=== PATIENT | male | born 1935 | race Caucasian/White ===

== ENCOUNTER 2018-07-29 01:54 | Inpatient (IN) ==
[2018-07-29] MEDS ORDERED: Bisacodyl 10 MG Supp RECTAL PRN (05:50)
[2018-07-29] MEDS ORDERED: Acetaminophen 325 MG Tablet PO PRN (05:50)
[2018-07-29] MEDS ORDERED: Dextrose 50% in Water 50 ML Vial IV.PUSH PRN (09:37)
[2018-07-29] MEDS: Senna/Docusate Sodium 8.6/50 MG Tablet PO SCH ×2 (10:24→20:32)
[2018-07-29] MEDS: Insulin NovoLOG Aspart Correctional Sugar Inj SQ SCH ×3 (11:54→20:31)
--- NOTE | 2018-07-29 18:05 | P.PNIM ---
Subjective Interval history: Mr. Gabriel is an 82-year-old male. He came in secondary to shortness of breath. He is also been having lower extremity swelling. Pulmonary edema is present on exam. He has a history of pacemaker which by history it seems to have been placed secondary to arrhythmia, possibly bigeminy. He denies any chest pain. Lasix will be provided an echocardiogram obtained as patient cannot clarify whether or not he has a history of congestive heart failure. No other complaints at this time. Lab work does suggest CHF with the physical exam plus BNP elevation. Physical Exam Vital signs: Vital Signs 07/29/18 08:35 07/29/18 08:44 07/29/18 13:42 Temperature 96.3 F L 96.7 F L Pulse Rate 68 61 64 Respiratory Rate 18 18 Blood Pressure 136/65 135/69 Pulse Oximetry 93 L 96 07/29/18 16:00 Temperature 97.7 F Pulse Rate 82 Respiratory Rate 22 Blood Pressure 114/54 L Pulse Oximetry 96 Intake & Output 07/28/18 07/29/18 07/29/18 18:59 06:59 18:59 Weight 111.13 kg Other: Date of Last Bowel Movement 07/29/18 Weight On Admission 111.13 kg Narrative: GENERAL: NAD, A&Ox3 HEAD: Normocephalic. NECK: Supple, trachea midline. No lymphadenopathy. EYES: No scleral icterus. No injection or drainage. CARDIOVASCULAR: Regular rate and rhythm without murmurs, gallops, or rubs. RESPIRATORY: Breath sounds equal bilaterally. No accessory muscle use. Crackles at bases bilaterally. GASTROINTESTINAL: Abdomen soft, non-tender, nondistended. MUSCULOSKELETAL: No cyanosis, bilateral lower extremity edema. SKIN: Warm and dry. NEURO: No focal neurological deficits. Assessment and Plan Plan 82-year-old male admitted secondary to shortness of breath Possible CHF exacerbation Obtain echocardiogram Lasix Follow for fluid balance IV diuresis Monitor renal function Oxygen as needed Follow clinically for improvement Follow on telemetry Progress Note: Quality VTE Deep Vein Thrombosis/Pulmonary Embolism Present on Admission: No
--- NOTE | 2018-07-29 18:12 | P.HPIM ---
History of Present Illness Primary Care Physician: UNKNOWN History of Present Illness: Mr. Gabriel is an 82-year-old male. He came in secondary to shortness of breath. He is also been having lower extremity swelling. Pulmonary edema is present on exam. He has a history of pacemaker which by history it seems to have been placed secondary to arrhythmia, possibly bigeminy. He denies any chest pain. Jose will be provided an echocardiogram obtained as patient cannot clarify whether or not he has a history of congestive heart failure. No other complaints at this time. Lab work does suggest CHF with the physical exam plus BNP elevation. Review of Systems Constitutional: No fevers, no chills no night sweats, no fatigue, no weakness Eyes: No eye pain, no blurry vision, no loss of vision ENT: No sore throat, no ear pain, no rhinorrhea Cardiovascular: No chest pain, no tachycardia, no palpitations, no syncope Respiratory: No wheezing, no cough, shortness of breath Gastrointestinal: No abdominal pain, no black tarry stools, no bright red blood per rectum, no vomiting, no diarrhea Musculoskeletal: No joint pain, no muscle cramps, no stiffness Integumentary: No rash, no ulcers, no drainage Neurologic: No sensory loss, no loss of motor function, no dizziness Psychiatric: No behavioral changes, no hallucinations, no suicidal ideations [facility] Medical History Medical History CHF (congestive heart failure) (Acute) Diabetes (Acute) Hx of cardiac pacemaker (Acute) Family History Family History Other Osteoarthritis Social History Social History Substance History: No History of Abuse Second Hand Smoke Exposure: No Smoking Status: Never smoker How Often Do You Have a Drink Containing Alcohol: Never Recent Travel in [facility] within the Last 8 Weeks: No Recent Out of Country Travel within the Last 8 Weeks: No Medications and Allergies Allergies Allergy/AdvReac Type Severity Reaction Status Date / Time No Known Allergies Allergy Verified 07/29/18 01:56 Home Medications Medication Instructions Recorded Confirmed Type No Known Home Medications 07/29/18 07/29/18 History Active Medications: Active Medications Acetaminophen (Tylenol) 650 mg PO Q4H PRN PRN Reason: Temp > 100.4 Al Hydroxide/Mg Hydroxide (Milk Of Magnesia Liq) 30 ml PO Q12H PRN PRN Reason: Mild Constipation Bisacodyl (Dulcolax Supp) 10 mg RECTAL DAILY PRN PRN Reason: SEVERE CONSITIPATION Dextrose (D50w Vial) 50 ml IV.PUSH UNSCH PRN PRN Reason: PER HYPOGLYCEMIA PROTOCOL Furosemide (Lasix Inj) 40 mg IV.PUSH BID@0800,1400 [facility] Glucagon (Glucagon Inj) 1 mg OTHER PRN PRN PRN Reason: for Hypoglycemia Protocol Insulin Aspart (Novolog Insulin Correctional Sugar Inj) 0 unit SQ ACHS [facility]; Protocol Last Admin: 07/29/18 16:57 Dose: 10 unit Lactulose (Lactulose Liq) 30 ml PO DAILY PRN PRN Reason: SEVERE CONSITIPATION Ondansetron HCl (Zofran Inj) 4 mg IV.PUSH Q6H PRN PRN Reason: NAUSEA OR VOMITING Senna/Docusate Sodium (Isamar-Colace) 1 tab PO BID [facility] Last Admin: 07/29/18 10:24 Dose: Not Given Sennosides (Senokot) 17.2 mg PO Q12H PRN PRN Reason: Moderate Constipation Sodium Chloride (Ns Flush) 2 ml IV.FLUSH BID [facility] Last Admin: 07/29/18 10:24 Dose: 2 ml Physical Exam Vital signs: Vital Signs 07/29/18 08:35 07/29/18 08:44 07/29/18 13:42 Temperature 96.3 F L 96.7 F L Pulse Rate 68 61 64 Respiratory Rate 18 18 Blood Pressure 136/65 135/69 Pulse Oximetry 93 L 96 07/29/18 16:00 Temperature 97.7 F Pulse Rate 82 Respiratory Rate 22 Blood Pressure 114/54 L Pulse Oximetry 96 Intake & Output 07/28/18 07/29/18 07/29/18 18:59 06:59 18:59 Weight 111.13 kg Other: Date of Last Bowel Movement 07/29/18 Weight On Admission 111.13 kg Narrative: GENERAL: NAD, A&Ox3 HEAD: Normocephalic. NECK: Supple, trachea midline. No lymphadenopathy. EYES: No scleral icterus. No injection or drainage. CARDIOVASCULAR: Regular rate and rhythm without murmurs, gallops, or rubs. RESPIRATORY: Breath sounds equal bilaterally. No accessory muscle use. Crackles at lungs bilaterally GASTROINTESTINAL: Abdomen soft, non-tender, nondistended. MUSCULOSKELETAL: No cyanosis, bilateral lower extremity edema SKIN: Warm and dry. NEURO: No focal neurological deficits. Caprini VTE Risk Assessment Caprini VTE Risk Assessment: No/Low Risk (score <= 1) Caprini Risk Assessment Model: Point Value = 1 Point Value = 2 Point Value = 3 Point Value = 5 Age 41-60 Minor surgery BMI > 25 kg/m2 Swollen legs Varicose veins or History of unexplained or recurrent spontaneous Oral contraceptives or hormone replacement Sepsis (< 1 month) Serious lung disease, including pneumonia (< 1 month) Abnormal pulmonary function Acute myocardial infarction Congestive heart failure (< 1 month) History of inflammatory bowel disease Medical patient at bed rest Age 61-74 Arthroscopic surgery Major open surgery (> 45 min) Laparoscopic surgery (> 45 min) Malignancy Confined to bed (> 72 hours) Immobilizing plaster cast Central venous access Age >= 75 History of VTE Family history of VTE Factor V Leiden Prothrombin [id number] Lupus anticoagulant Anticardiolipin antibodies Elevated serum homocysteine Heparin-induced thrombocytopenia Other congenital or acquired thrombophilia Stroke (< 1 month) Elective arthroplasty Hip, pelvis, or leg fracture Acute spinal cord injury (< 1 month) Prophylaxis Regimen: Total Risk Factor Score Risk Level Prophylaxis Regimen 0-1 Low Early ambulation 2 Moderate Order ONE of the following: *Sequential Compression Device (SCD) *Heparin 5000 units SQ BID 3-4 Higher Order ONE of the following medications: *Heparin 5000 units SQ TID *Enoxaparin/Lovenox 40 mg SQ daily (WT < 150 kg, CrCl > 30 mL/min) *Enoxaparin/Lovenox 30 mg SQ daily (WT < 150 kg, CrCl > 10-29 mL/min) *Enoxaparin/Lovenox 30 mg SQ BID (WT < 150 kg, CrCl > 30 mL/min) AND/OR *Sequential Compression Device (SCD) 5 or more Highest Order ONE of the following medications: *Heparin 5000 units SQ TID (Preferred with Epidurals) *Enoxaparin/Lovenox 40 mg SQ daily (WT < 150 kg, CrCl > 30 mL/min) *Enoxaparin/Lovenox 30 mg SQ daily (WT < 150 kg, CrCl > 10-29 mL/min) *Enoxaparin/Lovenox 30 mg SQ BID (WT < 150 kg, CrCl > 30 mL/min) AND *Sequential Compression Device (SCD) Assessment and Plan Plan 82-year-old male admitted secondary to shortness of breath, possible undiagnosed CHF with exacerbation Possible CHF exacerbation Obtain echocardiogram IV diuresis Monitor renal function Oxygen as needed Follow clinically for improvement Follow on telemetry No known cardiac history DVT prophylaxis SCDs H&P: Quality VTE Deep Vein Thrombosis/Pulmonary Embolism Present on Admission: No
[2018-07-29] MEDS ORDERED: guaiFENesin/Dextromethorphan 200 MG/20 MG 10 ML UDC PO PRN (21:00)
[2018-07-30 06:48] LABS: Chloride 98 meq/L (98-107); Potassium 3.3 meq/L (3.5-5.1); Sodium 136 meq/L (136-145)
[2018-07-30 06:50] LABS: Baso % (Auto) 0.2 % (0.0-2.0); Eos # (Auto) 0.2 th/mm3 (0.0-0.4); Eos % (Auto) 1.5 % (0.0-4.0); Hematocrit 46.9 % (39.0-51.0); Hemoglobin 15.4 gm/dL (13.0-17.0); Lymph # (Auto) 1.7 th/mm3 (1.0-4.8); Lymph % (Auto) 15.1 % (9.0-44.0); Mean Corpuscular HGB Conc 32.8 % (32.0-36.0); Mean Corpuscular Hemoglobin 29.7 pg (27.0-34.0); Mean Corpuscular Volume 90.5 fL (80.0-100.0); Mean Platelet Volume 10.2 fL (7.0-11.0); Mono # (Auto) 0.4 th/mm3 (0.0-0.9); Neut # (Auto) 8.8 th/mm3 (1.8-7.7); Neut % (Auto) 79.2 % (16.0-70.0); Platelet Count 243 th/mm3 (150-450); Red Blood Count 5.18 mil/mm3 (4.50-5.90); Red Cell Distribution Width 13.9 % (11.6-17.2); White Blood Count 11.1 th/mm3 (4.0-11.0)
[2018-07-30 06:51] LABS: Calcium 8.7 mg/dL (8.5-10.1)
[2018-07-30 06:52] LABS: Albumin 2.7 g/dL (3.4-5.0); Anion Gap 7 meq/L (5-15); Blood Urea Nitrogen 43 mg/dL (7-18); Carbon Dioxide 30.6 meq/L (21.0-32.0); Glucose,Random 135 mg/dL (74-106)
[2018-07-30 06:55] LABS: Alanine Aminotransferase 71 U/L (12-78); Aspartate Aminotransferase 75 U/L (15-37); Glomerular Filtration Rate 58 mL/min (>89)
[2018-07-30 06:57] LABS: Alkaline Phosphatase 118 U/L (45-117); Total Protein 7.2 g/dL (6.4-8.2)
[2018-07-30] MEDS: Senna/Docusate Sodium 8.6/50 MG Tablet PO SCH ×2 (08:44→21:49)
[2018-07-30] MEDS: Insulin NovoLOG Aspart Correctional Sugar Inj SQ SCH ×4 (08:45→21:48)
--- NOTE | 2018-07-30 12:56 | P.PNIM ---
Subjective Interval history: Her status has improved. Patient remains weak. Renal function also has improved. Echocardiogram just performed now and report pending. Physical Exam Vital signs: Vital Signs 07/29/18 13:42 07/29/18 16:00 07/29/18 16:15 Temperature 96.7 F L 97.7 F Pulse Rate 64 82 60 Respiratory Rate 18 22 Blood Pressure 135/69 114/54 L Pulse Oximetry 96 96 07/29/18 20:00 07/30/18 00:00 07/30/18 04:00 Temperature 96.8 F L 97.7 F 97.3 F L Pulse Rate 63 79 70 Respiratory Rate 20 20 20 Blood Pressure 119/62 145/88 H 118/78 Pulse Oximetry 94 L 98 94 L 07/30/18 08:00 07/30/18 12:00 Temperature 100.0 F H 100.8 F H Pulse Rate 97 H 93 H Respiratory Rate 20 20 Blood Pressure 133/61 136/65 Pulse Oximetry 95 95 Intake & Output 07/29/18 07/30/18 07/30/18 18:59 06:59 18:59 Output Total 175 / 175 Balance -175 / -175 Weight 111.13 kg 112.3 kg Output: Urine 175 / 175 Other: # Voids 4 Date of Last Bowel Movement 07/29/18 07/30/18 Weight On Admission 111.13 kg Narrative: GENERAL: NAD, A&Ox3 HEAD: Normocephalic. NECK: Supple, trachea midline. No lymphadenopathy. EYES: No scleral icterus. No injection or drainage. CARDIOVASCULAR: Regular rate and rhythm without murmurs, gallops, or rubs. RESPIRATORY: Breath sounds equal bilaterally. No accessory muscle use. Crackles at lungs bilaterally GASTROINTESTINAL: Abdomen soft, non-tender, nondistended. MUSCULOSKELETAL: No cyanosis, bilateral lower extremity edema SKIN: Warm and dry. NEURO: No focal neurological deficits. Results Labs CBC & Chem 7: 07/30/18 06:15 07/30/18 06:15 Assessment and Plan Plan 82-year-old male admitted secondary to shortness of breath, possible undiagnosed CHF with exacerbation Follow for echocardiogram report. Clinically patient has improvements in his renal function and breathing. Weakness remains in physical therapy ongoing. Possible CHF exacerbation Obtain echocardiogram IV diuresis Monitor renal function Oxygen as needed Follow clinically for improvement Follow on telemetry No known cardiac history DVT prophylaxis SCDs Progress Note: Quality VTE Deep Vein Thrombosis/Pulmonary Embolism Present on Admission: No
--- NOTE | 2018-07-30 18:36 | ECHRPT ---
Indication: SHORTNESS OF BREATH CONCLUSIONS Technically difficult study. Normal left ventricular size. The left ventricular systolic function is moderately to severely reduced with an estimated ejection fraction in the range of 30-35%. The estimated pulmonary arterial pressure is 14 mmHg. BP: / HR: Rhythm: Sinus MEASUREMENTS (Male / Female) Normal Values Technical Quality:Technically difficult study 2D ECHO LV Diastolic Diameter PLAX 5.1 cm 4.2 - 5.9 / 3.9 - 5.3 cm LV Systolic Diameter PLAX 4.4 cm IVS Diastolic Thickness 1.3 cm 0.6 - 1.0 / 0.6 - 0.9 cm LVPW Diastolic Thickness 1.4 cm 0.6 - 1.0 / 0.6 - 0.9 cm LV Relative Wall Thickness 0.5 LA Systolic Diameter LX 3.6 cm 3.0 - 4.0 / 2.7 - 3.8 cm DOPPLER AV Peak Velocity 157.0 cm/s AV Peak Gradient 9.9 mmHg AV Mean Gradient 5.0 mmHg AV Velocity Time Integral 24.8 cm LVOT Peak Velocity 85.0 cm/s LVOT Peak Gradient 2.9 mmHg LVOT Velocity Time Integral 15.2 cm Mitral E Point Velocity 110.0 cm/s Mitral A Point Velocity 66.6 cm/s Mitral E to A Ratio 1.7 LV E' Lateral Velocity 8.7 cm/s Mitral E to LV E' Lateral Ratio 12.7 LV E' Septal Velocity 7.6 cm/s Mitral E to LV E' Septal Ratio 14.5 TR Peak Velocity 96.4 cm/s TR Peak Gradient 3.7 mmHg Right Atrial Pressure 10.0 mmHg Pulmonary Artery Systolic Pressu 13.7 mmHg Right Ventricular Systolic Press 13.7 mmHg FINDINGS LEFT VENTRICLE Normal left ventricular size. The left ventricular systolic function is moderately to severely reduced with an estimated ejection fraction in the range of 30-35%. RIGHT VENTRICLE The right ventricle was not well visualized. LEFT ATRIUM The left atrial size is normal. RIGHT ATRIUM The right atrium is not well visualized. ATRIAL SEPTUM Normal atrial septal thickness without atrial level shunting by limited color doppler interrogation. AORTA The aortic root and proximal ascending aorta are not well visualized. MITRAL VALVE Structurally normal mitral valve. No mitral valve stenosis or regurgitation. AORTIC VALVE The aortic valve is not well visualized. TRICUSPID VALVE The estimated pulmonary arterial pressure is 14 mmHg. PULMONARY VALVE The pulmonary valve is not well visualized. VESSELS The inferior vena cava was not well visualized. PERICARDIUM No pericardial effusion. Mauricio Stokes MD, FACC (Electronically Signed) Final Date:30 July 2018 18:35
[2018-07-31 08:16] LABS: Baso % (Auto) 0.2 % (0.0-2.0); Eos # (Auto) 0.1 th/mm3 (0.0-0.4); Eos % (Auto) 0.6 % (0.0-4.0); Hemoglobin 14.6 gm/dL (13.0-17.0); Lymph # (Auto) 2.6 th/mm3 (1.0-4.8); Lymph % (Auto) 12.4 % (9.0-44.0); Mean Corpuscular HGB Conc 31.7 % (32.0-36.0); Mean Corpuscular Hemoglobin 28.9 pg (27.0-34.0); Mean Platelet Volume 9.6 fL (7.0-11.0); Mono # (Auto) 0.9 th/mm3 (0.0-0.9); Mono % (Auto) 4.1 % (0.0-8.0); Neut # (Auto) 17.2 th/mm3 (1.8-7.7); Neut % (Auto) 82.7 % (16.0-70.0); Platelet Count 234 th/mm3 (150-450); Red Blood Count 5.05 mil/mm3 (4.50-5.90); Red Cell Distribution Width 13.8 % (11.6-17.2); White Blood Count 20.8 th/mm3 (4.0-11.0)
[2018-07-31 08:31] LABS: Alanine Aminotransferase 55 U/L (12-78); Albumin 2.5 g/dL (3.4-5.0); Alkaline Phosphatase 111 U/L (45-117); Anion Gap 7 meq/L (5-15); Aspartate Aminotransferase 44 U/L (15-37); Blood Urea Nitrogen 37 mg/dL (7-18); Calcium 8.6 mg/dL (8.5-10.1); Carbon Dioxide 32.2 meq/L (21.0-32.0); Chloride 99 meq/L (98-107); Glomerular Filtration Rate 71 mL/min (>89); Glucose,Random 193 mg/dL (74-106); Potassium 4.2 meq/L (3.5-5.1); Sodium 138 meq/L (136-145); Total Protein 6.6 g/dL (6.4-8.2)
[2018-07-31] MEDS: Insulin NovoLOG Aspart Correctional Sugar Inj SQ SCH ×4 (09:28→20:33)
[2018-07-31] MEDS: Senna/Docusate Sodium 8.6/50 MG Tablet PO SCH ×2 (09:28→20:34)
[2018-07-31 09:51] LABS: Hypersegmented Neutrophils 1+
[2018-07-31 09:52] LABS: Platelet Estimate Normal (Normal); Platelet Morphology Normal (Normal)
--- NOTE | 2018-07-31 10:45 | P.PNIM ---
Subjective Interval history: No acute distress today. Patient's ambulation is improving. He does report that he gets periodic chills. No respiratory distress today. Findings of echocardiogram showed ejection fraction of 30-35%. Patient previously had not had diagnosed CHF. It is possible that he had underlying CHF without diagnosis. He has no local carrier washer. Physical Exam Vital signs: Vital Signs 07/30/18 12:00 07/30/18 13:20 07/30/18 16:00 Temperature 100.8 F H 96.9 F L Pulse Rate 93 H 87 78 Respiratory Rate 20 20 Blood Pressure 136/65 134/69 Pulse Oximetry 95 95 07/30/18 20:00 07/31/18 00:00 07/31/18 08:00 Temperature 97.7 F 97.7 F 96.8 F L Pulse Rate 75 62 93 H Respiratory Rate 16 16 18 Blood Pressure 127/74 114/74 135/89 Pulse Oximetry 95 94 L 95 Intake & Output 07/30/18 07/31/18 07/31/18 18:59 06:59 18:59 Intake Total 60 / 60 Output Total 175 / 175 Balance -175 / -175 60 / 60 Weight 112.3 kg Intake: Oral 60 / 60 Output: Urine 175 / 175 Other: # Urine Diapers 2 Date of Last Bowel Movement 07/30/18 07/30/18 07/31/18 # Bowel Movements 0 Narrative: GENERAL: NAD, A&Ox3 HEAD: Normocephalic. NECK: Supple, trachea midline. No lymphadenopathy. EYES: No scleral icterus. No injection or drainage. CARDIOVASCULAR: Regular rate and rhythm without murmurs, gallops, or rubs. RESPIRATORY: Breath sounds equal bilaterally. No accessory muscle use. Crackles at lungs bilaterally GASTROINTESTINAL: Abdomen soft, non-tender, nondistended. MUSCULOSKELETAL: No cyanosis, bilateral lower extremity edema SKIN: Warm and dry. NEURO: No focal neurological deficits. Results Labs CBC & Chem 7: 07/31/18 07:04 07/31/18 07:04 Assessment and Plan Plan 82-year-old male admitted secondary to shortness of breath, possible undiagnosed CHF with exacerbation Patient remains very weak but is slowly improving. Continue diuresis. Echocardiogram report shows an ejection fraction of 30-35%. Patient previously has undiagnosed CHF. Thyroid level to screen for patient's recurrent tremors and shivering/coldness. Systolic CHF exacerbation New onset CHF Obtain echocardiogram IV diuresis Monitor renal function Oxygen as needed Follow clinically for improvement Follow on telemetry No known cardiac history Cardiology consult DVT prophylaxis SCDs Progress Note: Quality VTE Deep Vein Thrombosis/Pulmonary Embolism Present on Admission: No
[2018-07-31 12:01] LABS: Thyroid Stimulating Hormone 0.976 uIU/mL (0.358-3.740)
[2018-07-31] MEDS: Lactobacillus Acidophilus/L. Spores Tablet PO SCH ×2 (12:09→17:29)
[2018-07-31 13:43] LABS: Triiodothyronine (T3) Free 1.3 pg/mL (2.18-3.98)
[2018-07-31 17:37] LABS: Activated Partial Thrombo Time 30.8 sec (23.4-31.7); INR 1.4 Ratio; Prothrombin Time 13.8 sec (9.8-11.6)
[2018-07-31] MEDS: Piperacil/Tazo 3.375 GM Premix 3.375 GM/50 ML PIGGYBACK IV.SIG SCH (18:28)
[2018-08-01] MEDS: Piperacil/Tazo 3.375 GM Premix 3.375 GM/50 ML PIGGYBACK IV.SIG SCH ×4 (00:23→21:06)
[2018-08-01 06:53] LABS: Chloride 98 meq/L (98-107); Potassium 3.8 meq/L (3.5-5.1); Sodium 137 meq/L (136-145)
[2018-08-01 06:58] LABS: Albumin 2.3 g/dL (3.4-5.0); Anion Gap 7 meq/L (5-15); Calcium 8.2 mg/dL (8.5-10.1); Carbon Dioxide 32.3 meq/L (21.0-32.0); Glucose,Random 274 mg/dL (74-106)
[2018-08-01 06:59] LABS: Blood Urea Nitrogen 37 mg/dL (7-18)
[2018-08-01 07:01] LABS: Alanine Aminotransferase 50 U/L (12-78)
[2018-08-01 07:02] LABS: Aspartate Aminotransferase 40 U/L (15-37); Glomerular Filtration Rate 58 mL/min (>89)
[2018-08-01 07:03] LABS: Total Protein 6.5 g/dL (6.4-8.2)
[2018-08-01 07:04] LABS: Alkaline Phosphatase 127 U/L (45-117)
[2018-08-01 07:08] LABS: Baso # (Auto) 0.1 th/mm3 (0.0-0.2); Baso % (Auto) 0.6 % (0.0-2.0); Eos # (Auto) 0.1 th/mm3 (0.0-0.4); Eos % (Auto) 0.7 % (0.0-4.0); Lymph # (Auto) 2.5 th/mm3 (1.0-4.8); Lymph % (Auto) 11.5 % (9.0-44.0); Mean Corpuscular Hemoglobin 28.8 pg (27.0-34.0); Mean Platelet Volume 10.2 fL (7.0-11.0); Mono % (Auto) 4.5 % (0.0-8.0); Neut # (Auto) 17.7 th/mm3 (1.8-7.7); Neut % (Auto) 82.7 % (16.0-70.0); Platelet Count 225 th/mm3 (150-450); Red Blood Count 4.88 mil/mm3 (4.50-5.90); Red Cell Distribution Width 14.2 % (11.6-17.2); White Blood Count 21.4 th/mm3 (4.0-11.0)
[2018-08-01] MEDS: Insulin NovoLOG Aspart Correctional Sugar Inj SQ SCH ×5 (08:53→21:04)
[2018-08-01] MEDS: Senna/Docusate Sodium 8.6/50 MG Tablet PO SCH ×2 (08:53→21:05)
[2018-08-01] MEDS: Lactobacillus Acidophilus/L. Spores Tablet PO SCH ×3 (08:53→17:58)
--- NOTE | 2018-08-01 10:32 | P.PNIM ---
Subjective Interval history: No recurrence of fevers on current antibiotics. Transferred to [facility] [place] pending. No new complaints from the patient. Physical Exam Vital signs: Vital Signs 07/31/18 12:00 07/31/18 20:00 08/01/18 00:00 Temperature 97.0 F L 97.6 F 97.1 F L Pulse Rate 90 60 67 Respiratory Rate 18 20 20 Blood Pressure 136/84 93/60 L 117/59 L Pulse Oximetry 95 94 L 93 L 08/01/18 04:00 08/01/18 08:00 Temperature 97.3 F L 96.8 F L Pulse Rate 62 74 Respiratory Rate 18 17 Blood Pressure 115/63 149/92 H Pulse Oximetry 94 L 97 Intake & Output 07/31/18 08/01/18 08/01/18 18:59 06:59 18:59 Intake Total 1180 / 1180 250 / 250 Output Total 925 / 925 600 / 600 Balance 255 / 255 -350 / -350 Weight 111.5 kg Intake: IV 100 / 100 250 / 250 Doxy 100 Inj 100 MG In NS Inj 100 / 100 100 / 100 100 ML @ 100 mls/hr IV.SIG Q12H NALINI Rx#:[id number] Zosyn 3.375 GM Premix 3.375 gm 150 / 150 In 50 ml @ 100 mls/hr IV.SIG Q6H NALINI Rx#:[id number] Oral 1080 / 1080 Output: Urine 925 / 925 600 / 600 Other: # Voids 3 # Incontinent Voids 1 Date of Last Bowel Movement 07/31/18 07/31/18 # Bowel Movements 0 Narrative: GENERAL: NAD, A&Ox3 HEAD: Normocephalic. NECK: Supple, trachea midline. No lymphadenopathy. EYES: No scleral icterus. No injection or drainage. CARDIOVASCULAR: Regular rate and rhythm without murmurs, gallops, or rubs. RESPIRATORY: Breath sounds equal bilaterally. No accessory muscle use. Crackles at lungs bilaterally GASTROINTESTINAL: Abdomen soft, non-tender, nondistended. MUSCULOSKELETAL: No cyanosis, bilateral lower extremity edema SKIN: Warm and dry. NEURO: No focal neurological deficits. Results Labs CBC & Chem 7: 08/01/18 06:35 08/01/18 06:35 Assessment and Plan Plan 82-year-old male admitted secondary to shortness of breath, possible undiagnosed CHF with exacerbation Weakness continues to improve. No tremors/rigors. No recurrence of fever in the last 24 hours. Transferred to [facility] main plan for MAYUR and possible cardioversion. Fever Rigors Leukocytosis Patient and family report that "shakes" and chills have been a daily problem for him for years. Doxycycline added for coverage of possible underlying tick-bourne illness Zosyn Continued and Vancomycin for possible acute infections ID consulted Continue Probiotics MAYUR planned Follow blood cultures A-flutter Resolved on latest EKG Continue to monitor on telemetry MAYUR planned Possibility of cardioversion, continue to monitor Heparin IV (given pending procedure possibilities) Systolic CHF exacerbation New onset/diagnosis CHF EF of 30-35% on echo Clinically improving with diuresis MAYUR pending IV diuresis Monitor renal function Oxygen as needed Follow clinically for improvement Follow on telemetry No known cardiac history Cardiology following Continue beta kandi DVT prophylaxis SCDs Progress Note: Quality VTE Deep Vein Thrombosis/Pulmonary Embolism Present on Admission: No
[2018-08-01] MEDS ORDERED: Vancomycin Consult Pharmacy OTHER PRN (10:38)
[2018-08-01] MEDS ORDERED: Vancomycin Inj 1,000 MG in Sodium Chlor 0.9% Inj 250 ML IV.SIG SCH (10:38)
--- NOTE | 2018-08-01 13:27 | P.CONCA ---
History of Present Illness Consult date: 08/01/18 Requesting Physician: Itz Jorgensen Reason for Consult: chf, cardiomyopathy Primary Care Provider: UNKNOWN Chief Complaint: dyspnea History of Present Illness: Mr. 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 Truong of cardiology and [facility]. He was admitted on 05/28 with a complaint of dyspnea, lower extremity edema, and intermittent cyclical rigors/chills that have been ongoing for months. The dyspnea is acutely worsened over the past few weeks. He denies any chest pain, palpitations, lightheadedness, syncope, PND or orthopnea. Chest x-ray revealed mild right base infiltrate and effusion. Chest CTA revealed small bilateral effusions and grossly negative for PE. Diffuse coronary artery calcifications involving the LM, LAD, LCx, RCA. Echocardiogram completed 07/30 revealed moderate to severely reduced LV systolic function, LVEF 30-35%, no significant valve disease, estimated PAP 14 mmHg. Apparently patient had no known history of cardiomyopathy by patient report. Electrocardiogram 07/29: Appears to be atrial flutter with ventricular paced rhythm. Electrocardiogram 07/31: Sinus with a sensed V paced rhythm Patient was started on furosemide 40 mg IV twice daily with improvement in symptoms. He has had recurrent chills, rigors and fever 100.8 F documented. He was initially started on IV doxycycline for presumed tickborne illness. However I see that his antibiotics were broadened to Zosyn and vancomycin. Infectious disease has been consulted. Patient is having chills and feels cold at this time. Otherwise no cardiopulmonary symptoms. Review of Systems All other systems reviewed negative except as stated in HPI PMFSH - History History Provided By: Patient - Medical History Medical History: Medical History (Last Reviewed 08/01/18 @ 08:01 by Jesus Diaz) CHF (congestive heart failure) Diabetes Hx of cardiac pacemaker - Family History Family History: Family History Other Osteoarthritis - Tobacco History Second Hand Smoke Exposure: No Smoking Status: Never smoker - Alcohol History How Often Do You Have a Drink Containing Alcohol: Never - Substance Use History Substance History: No History of Abuse - Travel History Recent Travel in the [facility] Within the Last 8 Weeks: No Recent Travel Out of the Country Within the Last 8 Weeks: No Medications and Allergies Active Medications: Active Medications Acetaminophen (Tylenol) 650 mg PO Q4H PRN PRN Reason: Temp > 100.4 Al Hydroxide/Mg Hydroxide (Milk Of Magnesia Liq) 30 ml PO Q12H PRN PRN Reason: Mild Constipation Bisacodyl (Dulcolax Supp) 10 mg RECTAL DAILY PRN PRN Reason: SEVERE CONSITIPATION Carvedilol (Coreg) 3.125 mg PO BID [facility] Last Admin: 08/01/18 08:53 Dose: 3.125 mg Dextrose (D50w Vial) 50 ml IV.PUSH UNSCH PRN PRN Reason: PER HYPOGLYCEMIA PROTOCOL Furosemide (Lasix Inj) 40 mg IV.PUSH BID@0800,1400 [facility] Last Admin: 08/01/18 08:52 Dose: 40 mg Glucagon (Glucagon Inj) 1 mg OTHER PRN PRN PRN Reason: for Hypoglycemia Protocol Guaifenesin/Dextromethorphan (Robitussin Dm Liq) 10 ml PO Q4H PRN PRN Reason: COUGH Last Admin: 07/29/18 20:32 Dose: 10 ml Doxycycline Hyclate 100 mg/ (Sodium Chloride) 100 mls @ 100 mls/hr IV.SIG Q12H [facility] Last Admin: 08/01/18 10:01 Dose: 100 mls/hr Heparin Sodium/Dextrose (Heparin/D5w 25,000 U/250 Ml) 25,000 unit in 250 mls @ 0 mls/hr IV.CONT TITRATE PRN; Protocol PRN Reason: Per Protocol Piperacillin/Tazobactam/Dextrose (Zosyn 3.375 Gm Premix) 3.375 gm in 50 mls @ 100 mls/hr IV.SIG Q6H [facility] Last Infusion: 08/01/18 05:59 Dose: Infused Vancomycin HCl 1,750 mg/ (Sodium Chloride) 517.5 mls @ 250 mls/hr IV.SIG Q18H [facility] Insulin Aspart (Novolog Insulin Correctional Sugar Inj) 0 unit SQ ACHS [facility]; Protocol Last Admin: 08/01/18 11:59 Dose: 15 unit Lactobacillus Acidophilus (Lactinex) 1 tab PO TID [facility] Last Admin: 08/01/18 11:59 Dose: 1 tab Lactulose (Lactulose Liq) 30 ml PO DAILY PRN PRN Reason: SEVERE CONSITIPATION Miscellaneous Information ([facility] Ordered Lab Info) 0 each OTHER ONCE ONE Stop: 08/03/18 19:46 Ondansetron HCl (Zofran Inj) 4 mg IV.PUSH Q6H PRN PRN Reason: NAUSEA OR VOMITING Pharmacy Profile Note (Vancomycin Consult Pharmacy) 1 each OTHER UNSCH PRN PRN Reason: Pharmacy to dose Senna/Docusate Sodium (Isamar-Colace) 1 tab PO BID [facility] Last Admin: 08/01/18 08:53 Dose: 1 tab Sennosides (Senokot) 17.2 mg PO Q12H PRN PRN Reason: Moderate Constipation Sodium Chloride (Ns Flush) 2 ml IV.FLUSH BID [facility] Last Admin: 08/01/18 08:53 Dose: 2 ml Allergies Allergy/AdvReac Type Severity Reaction Status Date / Time No Known Allergies Allergy Verified 07/29/18 01:56 Home Medications Medication Instructions Recorded Confirmed Type No Known Home Medications 07/29/18 07/29/18 History Exam Vital signs: Vital Signs 07/31/18 20:00 08/01/18 00:00 08/01/18 04:00 Temperature 97.6 F 97.1 F L 97.3 F L Pulse Rate 60 67 62 Respiratory Rate 20 20 18 Blood Pressure 93/60 L 117/59 L 115/63 Pulse Oximetry 94 L 93 L 94 L 08/01/18 08:00 Temperature 96.8 F L Pulse Rate 74 Respiratory Rate 17 Blood Pressure 149/92 H Pulse Oximetry 97 Intake & Output 07/31/18 08/01/18 08/01/18 18:59 06:59 18:59 Intake Total 1180 / 1180 250 / 250 Output Total 925 / 925 600 / 600 Balance 255 / 255 -350 / -350 Weight 111.5 kg Intake: IV 100 / 100 250 / 250 Doxy 100 Inj 100 MG In NS Inj 100 / 100 100 / 100 100 ML @ 100 mls/hr IV.SIG Q12H [facility] Rx#:[id number] Zosyn 3.375 GM Premix 3.375 gm 150 / 150 In 50 ml @ 100 mls/hr IV.SIG Q6H [facility] Rx#:[id number] Oral 1080 / 1080 Output: Urine 925 / 925 600 / 600 Other: # Voids 3 # Incontinent Voids 1 Date of Last Bowel Movement 07/31/18 07/31/18 07/31/18 # Bowel Movements 0 Narrative: GENERAL: AAO x3, appears comfortable speaking full sentences however he is bundled up in blankets and with a sweater and hoodie claiming to be very cold and having chills SKIN: Warm and dry. HEAD: Atraumatic. Normocephalic. EYES: Pupils equal and round. No scleral icterus. No injection or drainage. ENT: No nasal bleeding or discharge. Mucous membranes pink and moist. NECK: Trachea midline. No JVD. CARDIOVASCULAR: Regular rate and rhythm. Permanent pacemaker in the left anterior chest wall RESPIRATORY: No accessory muscle use. Clear to auscultation. Breath sounds equal bilaterally. GASTROINTESTINAL: Abdomen soft, non-tender, nondistended. MUSCULOSKELETAL: Extremities without clubbing, cyanosis. No obvious deformities. 1+ bilateral lower extremity edema, tense to palpation with slight oozing NEUROLOGICAL: Awake and alert. No obvious cranial nerve deficits. Motor grossly within normal limits. Five out of 5 muscle strength in the arms and legs. Normal speech. PSYCHIATRIC: Appropriate mood and affect; insight and judgment normal. Results 08/01/18 06:35 08/01/18 06:35 Cardiac Enzymes 07/31/18 08/01/18 Range/Units 07:04 06:35 AST 44 H 40 H (15-37) U/L Coagulation 07/31/18 07/31/18 Range/Units 17:10 22:48 PT 13.8 H (9.8-11.6) sec APTT 30.8 31.8 H (23.4-31.7) sec CBC 07/31/18 08/01/18 Range/Units 07:04 06:35 WBC 20.8 H 21.4 H (4.0-11.0) th/mm3 RBC 5.05 4.88 (4.50-5.90) mil/mm3 Hgb 14.6 14.0 (13.0-17.0) gm/dL Hct 46.0 44.0 (39.0-51.0) % Plt Count 234 225 (150-450) th/mm3 Neut # (Auto) 17.2 H 17.7 H (1.8-7.7) th/mm3 Lymph # (Auto) 2.6 2.5 (1.0-4.8) th/mm3 [place] # (Auto) 0.9 1.0 H (0.0-0.9) th/mm3 Eos # (Auto) 0.1 0.1 (0.0-0.4) th/mm3 Baso # (Auto) 0.0 0.1 (0.0-0.2) th/mm3 Comprehensive Metabolic Panel 07/31/18 08/01/18 Range/Units 07:04 06:35 Sodium 138 137 (136-145) meq/L Potassium 4.2 D 3.8 (3.5-5.1) meq/L Chloride 99 98 (98-107) meq/L Carbon Dioxide 32.2 H 32.3 H (21.0-32.0) meq/L BUN 37 H 37 H (7-18) mg/dL Creatinine 1.00 1.20 (0.60-1.30) mg/dL Calcium 8.6 8.2 L (8.5-10.1) mg/dL AST 44 H 40 H (15-37) U/L ALT 55 50 (12-78) U/L Alkaline Phosphatase 111 127 H (45-117) U/L Total Protein 6.6 D 6.5 (6.4-8.2) g/dL Albumin 2.5 L 2.3 L (3.4-5.0) g/dL Intake and Output 07/31/18 08/01/18 08/01/18 22:59 06:59 14:59 Intake Total 1130 / 1130 200 / 200 Output Total 750 / 750 600 / 600 Balance 380 / 380 -400 / -400 Intake: IV 50 / 50 200 / 200 Doxy 100 Inj 100 MG In NS Inj 100 / 100 100 ML @ 100 mls/hr IV.SIG Q12H [facility] Rx#:[id number] Zosyn 3.375 GM Premix 3.375 gm 50 / 50 100 / 100 In 50 ml @ 100 mls/hr IV.SIG Q6H [facility] Rx#:[id number] Oral 1080 / 1080 Output: Urine 750 / 750 600 / 600 Other: # Voids 3 # Incontinent Voids 1 Date of Last Bowel Movement 07/31/18 07/31/18 # Bowel Movements 0 Weight 111.5 kg Assessment and Plan - Plan Assessment: Patient presented with dyspnea on exertion and lower extremity edema which has since improved with initiation of IV diuretic therapy. He was noted to have reduced LV systolic function, LVEF 30-35% on transthoracic echocardiogram with no significant valvular disease or notable elevation in pulmonary arterial pressures. Presenting symptoms sound consistent with acute decompensated systolic congestive heart failure. He also has a report of chills, rigors, and low-grade fever documented 100.8 F, leukocytosis WBC 21,000 with left shift consistent with subacute infectious process as he reports having these symptoms for the past few months in a cyclical nature. Given he has a dual-chamber permanent pacemaker, infectious endocarditis needs to be ruled out. Patient will require transesophageal echocardiogram. --Acute decompensated systolic congestive heart failure, currently appears near euvolemic possibly still mildly hypervolemic and diuresing on current Lasix 40 mg twice daily. --Cardiomyopathy, LVEF 30-35%. Etiology would be presumed ischemic given the level of coronary artery calcification diffusely, however he will require an ischemic evaluation at some point with either Lexiscan stress test versus coronary angiography. --Diffuse coronary artery calcification involving the LM, LAD, LCx, RCA by chest CTA which was negative for PE --Dyspnea on exertion, likely secondary to ADHF --Atrial flutter presumed by EKG on admission 05/28, currently in sinus rhythm by EKG 05/30. Will require device interrogation to verify and see if patient would be appropriate for chronic anticoagulation therapy. --Sepsis, with fever, leukocytosis, source currently unclear. ID consulted by primary team. Currently on empiric antibiotics. Recommendations: -He has been arranged for [facility] on Saturday, n.p.o. after midnight Saturday. -Agree with initiation of carvedilol. -Start lisinopril 5 mg daily -Continue furosemide 40 mg twice daily until bump in creatinine. -Infectious workup and antibiotics I defer to ID and primary team. -Contact [employer] rep to obtain device interrogation. Please contact Dr. Darcy Barrow over the weekend if any emergencies arise otherwise will see the patient on Saturday.
[2018-08-01] MEDS: Vancomycin Inj 1,750 MG in Sodium Chlor 0.9% Inj 500 ML IV.SIG SCH (14:15)
--- NOTE | 2018-08-01 14:37 | ECG ---
Date Performed: 07/31/2018 Time Performed: 16:46:17 PTAGE: 82 years EKG: ELECTRONIC VENTRICULAR PACEMAKER ABNORMAL RHYTHM ECG NO PREVIOUS TRACING DOCTOR: Colette Funes Interpretating Date/Time 08/01/2018 14:32:19
[2018-08-02] MEDS: Piperacil/Tazo 3.375 GM Premix 3.375 GM/50 ML PIGGYBACK IV.SIG SCH ×4 (00:39→17:24)
[2018-08-02 07:44] LABS: Baso % (Auto) 0.2 % (0.0-2.0); Eos # (Auto) 0.1 th/mm3 (0.0-0.4); Eos % (Auto) 0.7 % (0.0-4.0); Lymph # (Auto) 2.5 th/mm3 (1.0-4.8); Mean Corpuscular HGB Conc 33.3 % (32.0-36.0); Mean Corpuscular Hemoglobin 29.7 pg (27.0-34.0); Mean Corpuscular Volume 89.1 fL (80.0-100.0); Mean Platelet Volume 9.2 fL (7.0-11.0); Mono # (Auto) 1.2 th/mm3 (0.0-0.9); Mono % (Auto) 7.5 % (0.0-8.0); Neut # (Auto) 12.6 th/mm3 (1.8-7.7); Neut % (Auto) 76.6 % (16.0-70.0); Platelet Count 232 th/mm3 (150-450); Red Blood Count 4.71 mil/mm3 (4.50-5.90); Red Cell Distribution Width 14.2 % (11.6-17.2); White Blood Count 16.5 th/mm3 (4.0-11.0)
--- NOTE | 2018-08-02 08:19 | P.PNIM ---
Subjective Interval history: Follow-up for fever, shortness of breath Shortness of breath about the same, still feels mediocre, denies any chest pain , dysuria, frequency or urgency. No abdominal pain. Had one loose bowel movement. No nausea or vomiting. Physical Exam Vital signs: Vital Signs 08/01/18 12:00 08/01/18 16:00 08/01/18 19:00 Temperature 99.9 F H Pulse Rate 68 82 72 Respiratory Rate 16 16 Blood Pressure 134/84 131/67 Pulse Oximetry 93 L 93 L 08/01/18 20:00 08/01/18 21:00 08/01/18 22:00 Temperature 100.7 F H Pulse Rate 74 68 70 Respiratory Rate 18 Blood Pressure 99/57 L Pulse Oximetry 94 L 08/01/18 23:00 08/02/18 00:00 08/02/18 00:04 Temperature 98.3 F Pulse Rate 66 62 60 Respiratory Rate 18 Blood Pressure 89/50 L Pulse Oximetry 92 L 08/02/18 01:00 08/02/18 02:00 08/02/18 03:00 Temperature Pulse Rate 60 54 L 62 Respiratory Rate Blood Pressure Pulse Oximetry 08/02/18 04:00 08/02/18 05:00 08/02/18 06:00 Temperature 96.0 F L Pulse Rate 60 34 L 63 Respiratory Rate 18 Blood Pressure 111/66 Pulse Oximetry 95 08/02/18 07:51 Temperature 98.7 F Pulse Rate 63 Respiratory Rate 19 Blood Pressure 108/47 L Pulse Oximetry 94 L Intake & Output 08/01/18 08/02/18 08/02/18 18:59 06:59 18:59 Intake Total 807.5 / 807.5 540 / 540 Output Total 1000 / 1000 300 / 300 Balance -192.5 / -192.5 240 / 240 Weight 95 kg Intake: IV 567.5 / 567.5 300 / 300 Doxy 100 Inj 100 MG In NS Inj 200 / 200 100 ML @ 100 mls/hr IV.SIG Q12H [facility] Rx#:[id number] Zosyn 3.375 GM Premix 3.375 gm 50 / 50 100 / 100 In 50 ml @ 100 mls/hr IV.SIG Q6H [facility] Rx#:[id number] Vancomycin Inj 1,750 MG In NS 517.5 / 517.5 Inj 500 ML @ 250 mls/hr IV.SIG Q18H [facility] Rx#:[id number] Oral 240 / 240 240 / 240 Output: Urine 1000 / 1000 300 / 300 Other: # Incontinent Voids 2 Date of Last Bowel Movement 07/31/18 08/01/18 Narrative: GENERAL: NAD, A&Ox3 CARDIOVASCULAR: Regular rate and rhythm without murmurs, gallops, or rubs. RESPIRATORY: Breath sounds equal bilaterally. Crackles in both bases especially on the right GASTROINTESTINAL: Abdomen soft, non-tender, nondistended. MUSCULOSKELETAL: No cyanosis, bilateral lower extremity edema SKIN: Warm and dry. NEURO: Alert awake and oriented x3, no focal neurological deficits. Results Labs CBC & Chem 7: 08/02/18 06:17 08/02/18 06:17 Labs: Microbiology 07/31/18 17:10 Blood - Peripheral Aerobic Blood Culture - Preliminary No growth in 1 day 07/31/18 17:10 Blood - Peripheral Anaerobic Blood Culture - Preliminary No growth in 1 day 07/31/18 17:05 Blood - Peripheral Aerobic Blood Culture - Preliminary No growth in 1 day 07/31/18 17:05 Blood - Peripheral Anaerobic Blood Culture - Preliminary No growth in 1 day Assessment and Plan Plan 82-year-old male admitted secondary to shortness of breath, possible undiagnosed CHF with exacerbation Sepsis secondary to pneumonia?-Patient with fever, leukocytosis, shortness of breath. Continue Zosyn and vancomycin, will hold off on doxycycline , ? possible tickborne illness. Infectious disease consulted, continue probiotics. Follow blood cultures, negative to date. Check urinalysis. Chest x-ray showed mild right base infiltrate, CT scan showed bilateral effusions. Duonebs as needed, stool cultre, Cdiff assay. Acute decompensated systolic congestive heart failure-ejection fraction 30-35%, possibly near euvolemia, continue diuresis. Cardiology following. Etiology may be ischemic given coronary artery calcification diffusely, will need coronary angiography versus Lexiscan stress testing. CTA has calcification involving LM, LAD, LCx, RCA. [facility] on Saturday with possible cardioversion, heparin , n.p.o. after Saturday midnight. Continue Coreg, lisinopril, continue Lasix, follow BMP daily. Contact [employer] for device interrogation. Oxygen support. Atrial flutter-presumed by EKG on admission, presently sinus rhythm. Will require interrogation, anticoagulation per cardiology. EMEA-potassium 2.9, replace, check magnesium. Recheck later today. Generalized weakness-from illness, wheeled walker, PT at rehab versus home health care. DVT prophylaxis: Heparin Progress Note: Quality VTE Deep Vein Thrombosis/Pulmonary Embolism Present on Admission: No
[2018-08-02] MEDS: Vancomycin Inj 1,750 MG in Sodium Chlor 0.9% Inj 500 ML IV.SIG SCH (08:22)
[2018-08-02] MEDS: Senna/Docusate Sodium 8.6/50 MG Tablet PO SCH ×2 (08:23→20:46)
[2018-08-02] MEDS: Insulin NovoLOG Aspart Correctional Sugar Inj SQ SCH ×4 (08:23→20:46)
[2018-08-02 08:24] LABS: Alanine Aminotransferase 36 U/L (12-78); Albumin 2.1 g/dL (3.4-5.0); Alkaline Phosphatase 124 U/L (45-117); Anion Gap 8 meq/L (5-15); Aspartate Aminotransferase 26 U/L (15-37); Blood Urea Nitrogen 27 mg/dL (7-18); Calcium 7.9 mg/dL (8.5-10.1); Carbon Dioxide 33.4 meq/L (21.0-32.0); Chloride 99 meq/L (98-107); Glomerular Filtration Rate 68 mL/min (>89); Glucose,Random 160 mg/dL (74-106); Sodium 140 meq/L (136-145); Total Protein 6.1 g/dL (6.4-8.2)
[2018-08-02 08:37] LABS: Potassium 2.9 meq/L (3.5-5.1)
[2018-08-02] MEDS: Potassium Chloride Liq 20 MEQ/15 ML UDC PO SCH ×2 (10:04→20:46)
[2018-08-02] MEDS: Lactobacillus Acidophilus/L. Spores Tablet PO SCH ×3 (10:04→17:24)
[2018-08-02 11:53] LABS: Bacteria,Urine Rare /hpf; Bilirubin,Urine Negative (Negative); Clarity,Urine Clear (Clear); Color,Urine Yellow (Yellw/Straw); Glucose,Urine (UA) Negative (Negative); Hyaline Casts,Urine 4 /lpf (0-3); Leukocyte Esterase,Urine Trace (Negative); Mucus,Urine Few /lpf (Occasional); Nitrite,Urine Negative (Negative); Squamous Epithelial Cell,Urine <1 /hpf (0-5)
[2018-08-02] MEDS: Lisinopril 5 MG Tablet PO SCH (13:20)
[2018-08-02 16:18] LABS: Calcium 7.9 mg/dL (8.5-10.1); Carbon Dioxide 32.3 meq/L (21.0-32.0); Potassium 3.2 meq/L (3.5-5.1)
--- NOTE | 2018-08-02 16:33 | P.CONID ---
History of Present Illness Service: ID Consult date: 08/02/18 Requesting Physician: Carlos Jorgensen Reason for Consult: sepsis Primary Care Provider: UNKNOWN Chief Complaint: dyspnea History of Present Illness: 82 yo poor historian with multiple med problems including incluidng DM, CHF and pacer placed about 2 yrs ago presented with vague complaints basically c/o malaise and SOB NO cough Fever, low grade 100-101 range Leukocytosis uo to 21 K W/u was remarkable of 1/4 bottles + blood clx in anaerobic bottle only dw Microlab - no ID yet. H/o remote colon cancer (about 10 yrs ago) Pt was started on zosyn, vancomycin, his fever reesolved His imaging stadies include CTA on admission: negative for PE and no infiltrates 2 D echo with EF 30-35% , no apparent vegetrations Review of Systems All other systems reviewed negative except as stated in HPI PMFSH - History History Provided By: Patient - Medical History Medical History: Medical History (Last Updated 08/03/18 @ 07:54 by Talia Cannon MD) Colon cancer CHF (congestive heart failure) Diabetes Hx of cardiac pacemaker - Surgical History Surgical History: Surgical History (Last Updated 08/03/18 @ 07:54 by Talia Cannon MD) H/O resection of large bowel - Family History Family History: Family History (Last Reviewed 08/03/18 @ 07:53 by Talia Cannon MD) Other Osteoarthritis - Social History I have reviewed the patient's Social History: Yes - Tobacco History Second Hand Smoke Exposure: No Smoking Status: Never smoker - Alcohol History How Often Do You Have a Drink Containing Alcohol: Never - Substance Use History Substance History: No History of Abuse - Travel History Recent Travel in the [place] Within the Last 8 Weeks: No Recent Travel Out of the Country Within the Last 8 Weeks: No Medications and Allergies Active Medications: Active Medications Acetaminophen (Tylenol) 650 mg PO Q4H PRN PRN Reason: Temp > 100.4 Last Admin: 08/01/18 21:04 Dose: 650 mg Al Hydroxide/Mg Hydroxide (Milk Of Magnesia Liq) 30 ml PO Q12H PRN PRN Reason: Mild Constipation Albuterol (Duoneb Neb (Prn)) 1 ampul NEB Q6HR NEB PRN PRN Reason: SHORTNESS OF BREATH Bisacodyl (Dulcolax Supp) 10 mg RECTAL DAILY PRN PRN Reason: SEVERE CONSITIPATION Carvedilol (Coreg) 3.125 mg PO BID [facility] Last Admin: 08/02/18 08:23 Dose: 3.125 mg Dextrose (D50w Vial) 50 ml IV.PUSH UNSCH PRN PRN Reason: PER HYPOGLYCEMIA PROTOCOL Furosemide (Lasix Inj) 40 mg IV.PUSH BID@0800,1400 [facility] Last Admin: 08/02/18 14:29 Dose: 40 mg Glucagon (Glucagon Inj) 1 mg OTHER PRN PRN PRN Reason: for Hypoglycemia Protocol Guaifenesin/Dextromethorphan (Robitussin Dm Liq) 10 ml PO Q4H PRN PRN Reason: COUGH Last Admin: 07/29/18 20:32 Dose: 10 ml Doxycycline Hyclate 100 mg/ (Sodium Chloride) 100 mls @ 100 mls/hr IV.SIG Q12H [facility] Last Infusion: 08/02/18 14:29 Dose: Infused Heparin Sodium/Dextrose (Heparin/D5w 25,000 U/250 Ml) 25,000 unit in 250 mls @ 0 mls/hr IV.CONT TITRATE PRN; Protocol PRN Reason: Per Protocol Piperacillin/Tazobactam/Dextrose (Zosyn 3.375 Gm Premix) 3.375 gm in 50 mls @ 100 mls/hr IV.SIG Q6H [facility] Last Infusion: 08/02/18 12:00 Dose: Infused Vancomycin HCl 1,750 mg/ (Sodium Chloride) 517.5 mls @ 250 mls/hr IV.SIG Q18H [facility] Last Infusion: 08/02/18 11:00 Dose: Infused Insulin Aspart (Novolog Insulin Correctional Sugar Inj) 0 unit SQ ACHS [facility]; Protocol Last Admin: 08/02/18 13:19 Dose: 15 unit Lactobacillus Acidophilus (Lactinex) 1 tab PO TID [facility] Last Admin: 08/02/18 14:29 Dose: 1 tab Lactulose (Lactulose Liq) 30 ml PO DAILY PRN PRN Reason: SEVERE CONSITIPATION Lisinopril (Prinivil) 5 mg PO DAILY [facility] Last Admin: 08/02/18 13:20 Dose: Not Given Miscellaneous Information ([facility] [place] Ordered Lab Info) 0 each OTHER ONCE ONE Stop: 08/03/18 19:46 Ondansetron HCl (Zofran Inj) 4 mg IV.PUSH Q6H PRN PRN Reason: NAUSEA OR VOMITING Pharmacy Profile Note (Vancomycin Consult Pharmacy) 1 each OTHER UNSCH PRN PRN Reason: Pharmacy to dose Potassium Chloride (Kcl Liq) 60 meq PO BID [facility] Stop: 08/02/18 21:01 Last Admin: 08/02/18 10:04 Dose: 60 meq Senna/Docusate Sodium (Isamar-Colace) 1 tab PO BID [facility] Last Admin: 08/02/18 08:23 Dose: 1 tab Sennosides (Senokot) 17.2 mg PO Q12H PRN PRN Reason: Moderate Constipation Sodium Chloride (Ns Flush) 2 ml IV.FLUSH BID [facility] Last Admin: 08/02/18 10:04 Dose: 2 ml Allergies Allergy/AdvReac Type Severity Reaction Status Date / Time No Known Allergies Allergy Verified 07/29/18 01:56 Home Medications Medication Instructions Recorded Confirmed Type No Known Home Medications 07/29/18 07/29/18 History Exam Vital signs: Vital Signs 08/01/18 19:00 08/01/18 20:00 08/01/18 21:00 Temperature 100.7 F H Pulse Rate 72 74 68 Respiratory Rate 18 Blood Pressure 99/57 L Pulse Oximetry 94 L 08/01/18 22:00 08/01/18 23:00 08/02/18 00:00 Temperature 98.3 F Pulse Rate 70 66 62 Respiratory Rate 18 Blood Pressure 89/50 L Pulse Oximetry 92 L 08/02/18 00:04 08/02/18 01:00 08/02/18 02:00 Temperature Pulse Rate 60 60 54 L Respiratory Rate Blood Pressure Pulse Oximetry 08/02/18 03:00 08/02/18 04:00 08/02/18 05:00 Temperature 96.0 F L Pulse Rate 62 60 34 L Respiratory Rate 18 Blood Pressure 111/66 Pulse Oximetry 95 08/02/18 06:00 08/02/18 07:00 08/02/18 07:51 Temperature 98.7 F Pulse Rate 63 63 63 Respiratory Rate 19 Blood Pressure 108/47 L Pulse Oximetry 94 L 08/02/18 08:00 08/02/18 09:00 08/02/18 10:00 Temperature Pulse Rate 62 56 L 55 L Respiratory Rate Blood Pressure Pulse Oximetry 08/02/18 11:00 08/02/18 11:21 08/02/18 12:00 Temperature 98.2 F Pulse Rate 50 L 62 55 L Respiratory Rate 18 Blood Pressure 114/54 L Pulse Oximetry 99 08/02/18 13:00 08/02/18 14:00 08/02/18 15:00 Temperature Pulse Rate 62 60 60 Respiratory Rate Blood Pressure Pulse Oximetry 08/02/18 15:33 Temperature 98.0 F Pulse Rate 60 Respiratory Rate 18 Blood Pressure 101/52 L Pulse Oximetry 96 Intake & Output 08/01/18 08/02/18 08/02/18 18:59 06:59 18:59 Intake Total 807.5 / 807.5 540 / 540 717.5 / 717.5 Output Total 1000 / 1000 300 / 300 Balance -192.5 / -192.5 240 / 240 717.5 / 717.5 Weight 95 kg Intake: IV 567.5 / 567.5 300 / 300 717.5 / 717.5 Doxy 100 Inj 100 MG In NS Inj 200 / 200 100 / 100 100 ML @ 100 mls/hr IV.SIG Q12H [facility] Rx#:[id number] Zosyn 3.375 GM Premix 3.375 gm 50 / 50 100 / 100 100 / 100 In 50 ml @ 100 mls/hr IV.SIG Q6H [facility] Rx#:[id number] Vancomycin Inj 1,750 MG In NS 517.5 / 517.5 517.5 / 517.5 Inj 500 ML @ 250 mls/hr IV.SIG Q18H [facility] Rx#:[id number] Oral 240 / 240 240 / 240 Output: Urine 1000 / 1000 300 / 300 Other: # Incontinent Voids 2 Date of Last Bowel Movement 07/31/18 08/01/18 08/02/18 - Constitutional no acute distress, obese - Routine HEENT Exam Head: Present: normocephalic, atraumatic Eye: Present: EOMI, PERRL ENT: Present: mucous membranes moist, oropharynx clear - Routine Neck Exam Present: supple. Absent: lymphadenopathy - Routine Chest/Breast/Axilla Exam Chest wall: Present: pacemaker (L chest, site OK, well healed icnsion , no redness or fluctuance) - Routine Respiratory Exam Present: decreased breath sounds (habitus), CTA bilaterally - Routine Cardiovascular Exam Present: RRR, S1, S2. Absent: murmur, gallop, rubs - Routine Abdominal Exam Present: soft, normoactive bowel sounds, surgical scars (medial laparotomy, well healed). Absent: tenderness, distended, organomegaly, mass - Routine Extremities Exam Present: edema. Absent: cyanosis, clubbing - Routine Skin Exam Present: wounds (superficiall wounds on BLE). Absent: cyanosis, jaundice, rash - Routine Neurological Exam Present: alert, oriented X3, CN II-XII intact. Absent: sensory deficit, motor deficit - Routine Psychiatric Exam Present: normal affect, cooperative Results - Labs CBC & Chem 7: 08/02/18 06:17 08/02/18 15:31 Labs: Laboratory Results - last 24 hr 08/01/18 08/02/18 08/02/18 21:00 06:17 06:17 WBC 16.5 H RBC 4.71 Hgb 14.0 Hct 42.0 MCV 89.1 MCH 29.7 MCHC 33.3 RDW 14.2 Plt Count 232 MPV 9.2 Neut % (Auto) 76.6 H Lymph % (Auto) 15.0 Foster % (Auto) 7.5 Eos % (Auto) 0.7 Baso % (Auto) 0.2 Neut # (Auto) 12.6 H Lymph # (Auto) 2.5 Foster # (Auto) 1.2 H Eos # (Auto) 0.1 Baso # (Auto) 0.0 WBC Differential . Differential Comment Auto diff final Sodium 140 Potassium 2.9 L* D Chloride 99 Carbon Dioxide 33.4 H Anion Gap 8 BUN 27 H Creatinine 1.04 Estimated GFR 68 L POC Glucose 325 H Random Glucose 160 H D Calcium 7.9 L Magnesium Total Bilirubin 1.0 AST 26 ALT 36 Alkaline Phosphatase 124 H Total Protein 6.1 L Albumin 2.1 L Urine Color Urine Clarity Urine pH Ur Specific [place] Urine Protein Urine Glucose (UA) Urine Ketones Urine Occult Blood Urine Nitrate Urine Bilirubin Urine Urobilinogen Ur Leukocyte Esterase Urine RBC Urine WBC Ur Squamous Epith Cells Urine Bacteria Hyaline Casts Urine Mucus Ur Microscopic Review 08/02/18 08/02/18 08/02/18 06:17 07:51 11:17 WBC RBC Hgb Hct MCV MCH MCHC RDW Plt Count MPV Neut % (Auto) Lymph % (Auto) [place] % (Auto) Eos % (Auto) Baso % (Auto) Neut # (Auto) Lymph # (Auto) Foster # (Auto) Eos # (Auto) Baso # (Auto) WBC Differential Differential Comment Sodium Potassium Chloride Carbon Dioxide Anion Gap BUN Creatinine Estimated GFR POC Glucose 174 H Random Glucose Calcium Magnesium 2.0 Total Bilirubin AST ALT Alkaline Phosphatase Total Protein Albumin Urine Color Yellow Urine Clarity Clear Urine pH 5.0 Ur Specific [place] 1.010 Urine Protein Negative Urine Glucose (UA) Negative Urine Ketones Negative Urine Occult Blood Small H Urine Nitrate Negative Urine Bilirubin Negative Urine Urobilinogen Less than 2 Ur Leukocyte Esterase Trace H Urine RBC 1 Urine WBC 4 Ur Squamous Epith Cells <1 Urine Bacteria Rare H Hyaline Casts 4 Urine Mucus Few H Ur Microscopic Review Not Reportable 08/02/18 08/02/18 11:32 15:31 WBC RBC Hgb Hct MCV MCH MCHC RDW Plt Count MPV Neut % (Auto) Lymph % (Auto) Foster % (Auto) Eos % (Auto) Baso % (Auto) Neut # (Auto) Lymph # (Auto) Foster # (Auto) Eos # (Auto) Baso # (Auto) WBC Differential Differential Comment Sodium 138 Potassium 3.2 L Chloride 99 Carbon Dioxide 32.3 H Anion Gap 7 BUN 25 H Creatinine 1.26 Estimated GFR 55 L POC Glucose 281 H Random Glucose 264 H D Calcium 7.9 L Magnesium Total Bilirubin AST ALT Alkaline Phosphatase Total Protein Albumin Urine Color Urine Clarity Urine pH Ur Specific [place] Urine Protein Urine Glucose (UA) Urine Ketones Urine Occult Blood Urine Nitrate Urine Bilirubin Urine Urobilinogen Ur Leukocyte Esterase Urine RBC Urine WBC Ur Squamous Epith Cells Urine Bacteria Hyaline Casts Urine Mucus Ur Microscopic Review Assessment and Plan - Plan Gram negative sepsis - inapparent sourece Pacemaker Remote cancer cont zosyn dc vancomycin CT A/p
--- NOTE | 2018-08-02 18:34 | P.PNCA ---
Subjective Interval history: eating dinner, no new event No fever, feels better Medications and Allergies Active Medications: Active Medications Acetaminophen (Tylenol) 650 mg PO Q4H PRN PRN Reason: Temp > 100.4 Last Admin: 08/01/18 21:04 Dose: 650 mg Al Hydroxide/Mg Hydroxide (Milk Of Magnesia Liq) 30 ml PO Q12H PRN PRN Reason: Mild Constipation Albuterol (Duoneb Neb (Prn)) 1 ampul NEB Q6HR NEB PRN PRN Reason: SHORTNESS OF BREATH Bisacodyl (Dulcolax Supp) 10 mg RECTAL DAILY PRN PRN Reason: SEVERE CONSITIPATION Carvedilol (Coreg) 3.125 mg PO BID [facility] Last Admin: 08/02/18 08:23 Dose: 3.125 mg Dextrose (D50w Vial) 50 ml IV.PUSH UNSCH PRN PRN Reason: PER HYPOGLYCEMIA PROTOCOL Furosemide (Lasix Inj) 40 mg IV.PUSH BID@0800,1400 [facility] Last Admin: 08/02/18 14:29 Dose: 40 mg Glucagon (Glucagon Inj) 1 mg OTHER PRN PRN PRN Reason: for Hypoglycemia Protocol Guaifenesin/Dextromethorphan (Robitussin Dm Liq) 10 ml PO Q4H PRN PRN Reason: COUGH Last Admin: 07/29/18 20:32 Dose: 10 ml Doxycycline Hyclate 100 mg/ (Sodium Chloride) 100 mls @ 100 mls/hr IV.SIG Q12H [facility] Last Infusion: 08/02/18 14:29 Dose: Infused Heparin Sodium/Dextrose (Heparin/D5w 25,000 U/250 Ml) 25,000 unit in 250 mls @ 0 mls/hr IV.CONT TITRATE PRN; Protocol PRN Reason: Per Protocol Piperacillin/Tazobactam/Dextrose (Zosyn 3.375 Gm Premix) 3.375 gm in 50 mls @ 100 mls/hr IV.SIG Q6H [facility] Last Infusion: 08/02/18 17:58 Dose: Infused Vancomycin HCl 1,750 mg/ (Sodium Chloride) 517.5 mls @ 250 mls/hr IV.SIG Q18H [facility] Last Infusion: 08/02/18 11:00 Dose: Infused Insulin Aspart (Novolog Insulin Correctional Sugar Inj) 0 unit SQ ACHS [facility]; Protocol Last Admin: 08/02/18 17:25 Dose: 10 unit Lactobacillus Acidophilus (Lactinex) 1 tab PO TID [facility] Last Admin: 08/02/18 17:24 Dose: 1 tab Lactulose (Lactulose Liq) 30 ml PO DAILY PRN PRN Reason: SEVERE CONSITIPATION Lisinopril (Prinivil) 5 mg PO DAILY [facility] Last Admin: 08/02/18 13:20 Dose: Not Given Miscellaneous Information [place] Ordered Lab Info) 0 each OTHER ONCE ONE Stop: 08/03/18 19:46 Ondansetron HCl (Zofran Inj) 4 mg IV.PUSH Q6H PRN PRN Reason: NAUSEA OR VOMITING Pharmacy Profile Note (Vancomycin Consult Pharmacy) 1 each OTHER UNSCH PRN PRN Reason: Pharmacy to dose Potassium Chloride (Kcl Liq) 60 meq PO BID [facility] Stop: 08/02/18 21:01 Last Admin: 08/02/18 10:04 Dose: 60 meq Senna/Docusate Sodium (Isamar-Colace) 1 tab PO BID [facility] Last Admin: 08/02/18 08:23 Dose: 1 tab Sennosides (Senokot) 17.2 mg PO Q12H PRN PRN Reason: Moderate Constipation Sodium Chloride (Ns Flush) 2 ml IV.FLUSH BID [facility] Last Admin: 08/02/18 10:04 Dose: 2 ml Allergies Allergy/AdvReac Type Severity Reaction Status Date / Time No Known Allergies Allergy Verified 07/29/18 01:56 Home Medications Medication Instructions Recorded Confirmed Type No Known Home Medications 07/29/18 07/29/18 History Physical Exam Vital signs: Vital Signs 08/01/18 19:00 08/01/18 20:00 08/01/18 21:00 Temperature 100.7 F H Pulse Rate 72 74 68 Respiratory Rate 18 Blood Pressure 99/57 L Pulse Oximetry 94 L 08/01/18 22:00 08/01/18 23:00 08/02/18 00:00 Temperature 98.3 F Pulse Rate 70 66 62 Respiratory Rate 18 Blood Pressure 89/50 L Pulse Oximetry 92 L 08/02/18 00:04 08/02/18 01:00 08/02/18 02:00 Temperature Pulse Rate 60 60 54 L Respiratory Rate Blood Pressure Pulse Oximetry 08/02/18 03:00 08/02/18 04:00 08/02/18 05:00 Temperature 96.0 F L Pulse Rate 62 60 34 L Respiratory Rate 18 Blood Pressure 111/66 Pulse Oximetry 95 08/02/18 06:00 08/02/18 07:00 08/02/18 07:51 Temperature 98.7 F Pulse Rate 63 63 63 Respiratory Rate 19 Blood Pressure 108/47 L Pulse Oximetry 94 L 08/02/18 08:00 08/02/18 09:00 08/02/18 10:00 Temperature Pulse Rate 62 56 L 55 L Respiratory Rate Blood Pressure Pulse Oximetry 08/02/18 11:00 08/02/18 11:21 08/02/18 12:00 Temperature 98.2 F Pulse Rate 50 L 62 55 L Respiratory Rate 18 Blood Pressure 114/54 L Pulse Oximetry 99 08/02/18 13:00 08/02/18 14:00 08/02/18 15:00 Temperature Pulse Rate 62 60 60 Respiratory Rate Blood Pressure Pulse Oximetry 08/02/18 15:33 08/02/18 16:00 08/02/18 17:00 Temperature 98.0 F Pulse Rate 60 58 L 60 Respiratory Rate 18 Blood Pressure 101/52 L Pulse Oximetry 96 08/02/18 17:58 Temperature Pulse Rate 65 Respiratory Rate Blood Pressure Pulse Oximetry Intake & Output 08/01/18 08/02/18 08/02/18 18:59 06:59 18:59 Intake Total 807.5 / 807.5 540 / 540 1417.5 / 1417.5 Output Total 1000 / 1000 300 / 300 1000 / 1000 Balance -192.5 / -192.5 240 / 240 417.5 / 417.5 Weight 95 kg Intake: IV 567.5 / 567.5 300 / 300 767.5 / 767.5 Doxy 100 Inj 100 MG In NS Inj 200 / 200 100 / 100 100 ML @ 100 mls/hr IV.SIG Q12H [facility] Rx#:[id number] Zosyn 3.375 GM Premix 3.375 gm 50 / 50 100 / 100 150 / 150 In 50 ml @ 100 mls/hr IV.SIG Q6H [facility] Rx#:[id number] Vancomycin Inj 1,750 MG In NS 517.5 / 517.5 517.5 / 517.5 Inj 500 ML @ 250 mls/hr IV.SIG Q18H [facility] Rx#:[id number] Oral 240 / 240 240 / 240 650 / 650 Output: Urine 1000 / 1000 300 / 300 1000 / 1000 Other: # Incontinent Voids 2 Date of Last Bowel Movement 07/31/18 08/01/18 08/02/18 # Bowel Movements 1 Narrative: GENERAL: AAO x3, appears comfortable speaking full sentences however he is bundled up in blankets and with a sweater and hoodie claiming to be very cold and having chills SKIN: Warm and dry. HEAD: Atraumatic. Normocephalic. EYES: Pupils equal and round. No scleral icterus. No injection or drainage. ENT: No nasal bleeding or discharge. Mucous membranes pink and moist. NECK: Trachea midline. No JVD. CARDIOVASCULAR: Regular rate and rhythm. Permanent pacemaker in the left anterior chest wall RESPIRATORY: No accessory muscle use. Clear to auscultation. Breath sounds equal bilaterally. GASTROINTESTINAL: Abdomen soft, non-tender, nondistended. MUSCULOSKELETAL: Extremities without clubbing, cyanosis. No obvious deformities. 1+ bilateral lower extremity edema, tense to palpation with slight oozing NEUROLOGICAL: Awake and alert. No obvious cranial nerve deficits. Motor grossly within normal limits. Five out of 5 muscle strength in the arms and legs. Normal speech. PSYCHIATRIC: Appropriate mood and affect; insight and judgment normal. Results 08/02/18 06:17 08/02/18 15:31 Cardiac Enzymes 08/01/18 08/02/18 Range/Units 06:35 06:17 AST 40 H 26 (15-37) U/L Coagulation 07/31/18 Range/Units 22:48 APTT 31.8 H (23.4-31.7) sec CBC 08/01/18 08/02/18 Range/Units 06:35 06:17 WBC 21.4 H 16.5 H (4.0-11.0) th/mm3 RBC 4.88 4.71 (4.50-5.90) mil/mm3 Hgb 14.0 14.0 (13.0-17.0) gm/dL Hct 44.0 42.0 (39.0-51.0) % Plt Count 225 232 (150-450) th/mm3 Neut # (Auto) 17.7 H 12.6 H (1.8-7.7) th/mm3 Lymph # (Auto) 2.5 2.5 (1.0-4.8) th/mm3 [place] # (Auto) 1.0 H 1.2 H (0.0-0.9) th/mm3 Eos # (Auto) 0.1 0.1 (0.0-0.4) th/mm3 Baso # (Auto) 0.1 0.0 (0.0-0.2) th/mm3 Comprehensive Metabolic Panel 08/01/18 08/02/18 08/02/18 Range/Units 06:35 06:17 15:31 Sodium 137 140 138 (136-145) meq/L Potassium 3.8 2.9 L* D 3.2 L (3.5-5.1) meq/L Chloride 98 99 99 (98-107) meq/L Carbon Dioxide 32.3 H 33.4 H 32.3 H (21.0-32.0) meq/L BUN 37 H 27 H 25 H (7-18) mg/dL Creatinine 1.20 1.04 1.26 (0.60-1.30) mg/dL Calcium 8.2 L 7.9 L 7.9 L (8.5-10.1) mg/dL AST 40 H 26 (15-37) U/L ALT 50 36 (12-78) U/L Alkaline Phosphatase 127 H 124 H (45-117) U/L Total Protein 6.5 6.1 L (6.4-8.2) g/dL Albumin 2.3 L 2.1 L (3.4-5.0) g/dL Intake and Output 08/02/18 08/02/18 08/02/18 06:59 14:59 22:59 Intake Total 390 / 390 717.5 / 717.5 700 / 700 Output Total 300 / 300 1000 / 1000 Balance 90 / 90 717.5 / 717.5 -300 / -300 Intake: IV 150 / 150 717.5 / 717.5 50 / 50 Doxy 100 Inj 100 MG In NS Inj 100 / 100 100 / 100 100 ML @ 100 mls/hr IV.SIG Q12H [facility] Rx#:[id number] Zosyn 3.375 GM Premix 3.375 gm 50 / 50 100 / 100 50 / 50 In 50 ml @ 100 mls/hr IV.SIG Q6H [facility] Rx#:[id number] Vancomycin Inj 1,750 MG In NS 517.5 / 517.5 Inj 500 ML @ 250 mls/hr IV.SIG Q18H [facility] Rx#:[id number] Oral 240 / 240 650 / 650 Output: Urine 300 / 300 1000 / 1000 Other: Date of Last Bowel Movement 08/02/18 08/02/18 # Bowel Movements 1 Weight 95 kg Assessment and Plan - Plan Assessment: Patient presented with dyspnea on exertion and lower extremity edema which has since improved with initiation of IV diuretic therapy. He was noted to have reduced LV systolic function, LVEF 30-35% on transthoracic echocardiogram with no significant valvular disease or notable elevation in pulmonary arterial pressures. Presenting symptoms sound consistent with acute decompensated systolic congestive heart failure. He also has a report of chills, rigors, and low-grade fever documented 100.8 F, leukocytosis WBC 21,000 with left shift consistent with subacute infectious process as he reports having these symptoms for the past few months in a cyclical nature. Given he has a dual-chamber permanent pacemaker, infectious endocarditis needs to be ruled out. Patient will require transesophageal echocardiogram. --Acute decompensated systolic congestive heart failure, currently appears near euvolemic possibly still mildly hypervolemic and diuresing on current Lasix 40 mg twice daily. --Cardiomyopathy, LVEF 30-35%. Etiology would be presumed ischemic given the level of coronary artery calcification diffusely, however he will require an ischemic evaluation at some point with either Lexiscan stress test versus coronary angiography. --Diffuse coronary artery calcification involving the LM, LAD, LCx, RCA by chest CTA which was negative for PE --Dyspnea on exertion, likely secondary to ADHF --Atrial flutter presumed by EKG on admission 05/28, currently in sinus rhythm by EKG 05/30. Will require device interrogation to verify and see if patient would be appropriate for chronic anticoagulation therapy. --Sepsis, with fever, leukocytosis, source currently unclear. ID consulted by primary team. Currently on empiric antibiotics. Recommendations: -He has been arranged for [facility] on Saturday, n.p.o. after midnight Saturday. -Agree with initiation of carvedilol. -Start lisinopril 5 mg daily -Continue furosemide 40 mg twice daily until bump in creatinine. -Infectious workup and antibiotics I defer to ID and primary team. -Contact [facility] to obtain device interrogation. on 08/02/18. No significant change. Continue current plan. I am seeing patient for Dr. Zechariah Garcia over the weekend
[2018-08-03] MEDS: Piperacil/Tazo 3.375 GM Premix 3.375 GM/50 ML PIGGYBACK IV.SIG SCH ×5 (01:34→23:49)
[2018-08-03] MEDS: Vancomycin Inj 1,750 MG in Sodium Chlor 0.9% Inj 500 ML IV.SIG SCH (02:27)
[2018-08-03] MEDS: Insulin NovoLOG Aspart Correctional Sugar Inj SQ SCH ×4 (08:31→20:54)
[2018-08-03] MEDS: Lisinopril 5 MG Tablet PO SCH (08:32)
[2018-08-03] MEDS: Senna/Docusate Sodium 8.6/50 MG Tablet PO SCH ×2 (08:32→20:55)
[2018-08-03] MEDS: Lactobacillus Acidophilus/L. Spores Tablet PO SCH ×3 (08:32→17:20)
--- NOTE | 2018-08-03 09:25 | P.PNIM ---
Subjective Interval history: f/u SOB Shortness of breath better, feels better today, no chest pain or palpitations. No abdominal pain, no further diarrhea. Afebrile. Physical Exam Vital signs: Vital Signs 08/02/18 10:00 08/02/18 11:00 08/02/18 11:21 Temperature 98.2 F Pulse Rate 55 L 50 L 62 Respiratory Rate 18 Blood Pressure 114/54 L Pulse Oximetry 99 08/02/18 12:00 08/02/18 13:00 08/02/18 14:00 Temperature Pulse Rate 55 L 62 60 Respiratory Rate Blood Pressure Pulse Oximetry 08/02/18 15:00 08/02/18 15:33 08/02/18 16:00 Temperature 98.0 F Pulse Rate 60 60 58 L Respiratory Rate 18 Blood Pressure 101/52 L Pulse Oximetry 96 08/02/18 17:00 08/02/18 17:58 08/02/18 19:00 Temperature Pulse Rate 60 65 60 Respiratory Rate Blood Pressure Pulse Oximetry 08/02/18 20:00 08/02/18 21:00 08/02/18 22:00 Temperature 97.7 F Pulse Rate 60 68 58 L Respiratory Rate 18 Blood Pressure 110/51 L Pulse Oximetry 96 08/02/18 23:00 08/03/18 00:00 08/03/18 01:00 Temperature 98.0 F Pulse Rate 64 60 64 Respiratory Rate 18 Blood Pressure 115/64 Pulse Oximetry 98 08/03/18 02:00 08/03/18 03:00 08/03/18 04:00 Temperature Pulse Rate 60 61 65 Respiratory Rate 18 Blood Pressure 122/73 Pulse Oximetry 97 08/03/18 05:00 08/03/18 06:00 08/03/18 07:59 Temperature 97.2 F L Pulse Rate 90 52 L 65 Respiratory Rate Blood Pressure 142/90 H Pulse Oximetry 96 Intake & Output 08/02/18 08/03/18 08/03/18 18:59 06:59 18:59 Intake Total 1417.5 / 1417.5 1147.5 / 1147.5 50 / 50 Output Total 1000 / 1000 300 / 300 Balance 417.5 / 417.5 847.5 / 847.5 50 / 50 Weight 110 kg Intake: IV 767.5 / 767.5 667.5 / 667.5 50 / 50 Doxy 100 Inj 100 MG In NS Inj 100 / 100 100 / 100 100 ML @ 100 mls/hr IV.SIG Q12H [facility] Rx#:[id number] Zosyn 3.375 GM Premix 3.375 gm 150 / 150 50 / 50 50 / 50 In 50 ml @ 100 mls/hr IV.SIG Q6H NALINI Rx#:[id number] Vancomycin Inj 1,750 MG In NS 517.5 / 517.5 517.5 / 517.5 Inj 500 ML @ 250 mls/hr IV.SIG Q18H NALINI Rx#:[id number] Oral 650 / 650 480 / 480 Output: Urine 1000 / 1000 300 / 300 Other: # Voids 3 Date of Last Bowel Movement 08/02/18 08/03/18 08/02/16 # Bowel Movements 1 1 Narrative: GENERAL: NAD, A&Ox3 CARDIOVASCULAR: Regular rate and rhythm without murmurs, gallops, or rubs. RESPIRATORY: Breath sounds equal bilaterally. Crackles improving, almost clear. GASTROINTESTINAL: Abdomen soft, non-tender, nondistended. MUSCULOSKELETAL: No cyanosis, bilateral lower extremity trace edema SKIN: Warm and dry. NEURO: Alert awake and oriented x3, no focal neurological deficits. Results Labs CBC & Chem 7: 08/03/18 07:38 08/03/18 07:38 Labs: Microbiology 07/31/18 17:10 Blood - Peripheral Aerobic Blood Culture - Preliminary No growth in 2 days 07/31/18 17:10 Blood - Peripheral Anaerobic Blood Culture - Preliminary No growth in 2 days 07/31/18 17:05 Blood - Peripheral Aerobic Blood Culture - Preliminary No growth in 2 days 07/31/18 17:05 Blood - Peripheral Anaerobic Blood Culture - Preliminary gram negative rods Assessment and Plan Plan 82-year-old male admitted secondary to shortness of breath, possible undiagnosed CHF with exacerbation Sepsis secondary to pneumonia with gram-negative bacteremia-Patient with fever, leukocytosis, shortness of breath. Infectious disease consulted, continue Zosyn for now, stop vancomycin. Check CT scan of the abdomen and pelvis. Blood culture 1 anaerobic bottle showed gram-negative rods. Urinalysis unremarkable. Chest x-ray showed mild right base infiltrate, CT scan showed bilateral effusions. No diarrhea, C. difficile assay canceled. Duo nebs as needed. Leukocytosis resolved. Acute decompensated systolic congestive heart failure with atrial flutter- ejection fraction 30-35%, possibly near euvolemia, continue diuresis. Cardiology following. Etiology may be ischemic given coronary artery calcification diffusely, will need coronary angiography versus Lexiscan stress testing. CTA has calcification involving LM, LAD, LCx, RCA. MAYUR on Saturday with possible cardioversion, heparin, n.p.o. after Saturday midnight. Continue Coreg, lisinopril, continue Lasix, creatinine stable. Status post [employer] interrogation, only showed atrial fibrillation in 07/29/2018. Continue oxygen support. Atrial flutter-presumed by EKG on admission, presently sinus rhythm. Will require interrogation, anticoagulation per cardiology. hypokalemia-resolved, magnesium is normal. Generalized weakness-from illness, wheeled walker, PT at rehab versus home health care. DVT prophylaxis: Heparin Progress Note: Quality VTE Deep Vein Thrombosis/Pulmonary Embolism Present on Admission: No
[2018-08-03 09:51] LABS: Baso # (Auto) 0.1 th/mm3 (0.0-0.2); Baso % (Auto) 0.5 % (0.0-2.0); Eos # (Auto) 0.2 th/mm3 (0.0-0.4); Eos % (Auto) 1.7 % (0.0-4.0); Hematocrit 43.9 % (39.0-51.0); Hemoglobin 14.5 gm/dL (13.0-17.0); Lymph # (Auto) 2.5 th/mm3 (1.0-4.8); Lymph % (Auto) 19.7 % (9.0-44.0); Mean Corpuscular Hemoglobin 30.3 pg (27.0-34.0); Mean Platelet Volume 9.8 fL (7.0-11.0); Mono # (Auto) 1.2 th/mm3 (0.0-0.9); Mono % (Auto) 9.3 % (0.0-8.0); Neut # (Auto) 8.7 th/mm3 (1.8-7.7); Neut % (Auto) 68.8 % (16.0-70.0); Platelet Count 219 th/mm3 (150-450); Red Blood Count 4.78 mil/mm3 (4.50-5.90); Red Cell Distribution Width 14.5 % (11.6-17.2); White Blood Count 12.6 th/mm3 (4.0-11.0)
[2018-08-03 09:52] LABS: Calcium 8.2 mg/dL (8.5-10.1); Carbon Dioxide 27.4 meq/L (21.0-32.0)
--- NOTE | 2018-08-03 12:36 | CT ---
EXAM DATE: 08/03/2018 12:12 PM EST AGE/SEX: 82 years / Male INDICATIONS: Abdomen Pain, Fever CLINICAL DATA: This is the patient's initial encounter. Patient reports that signs and symptoms have been present for 1 day and indicates a pain score of 2/10. MEDICAL/SURGICAL HISTORY: Congestive heart failure. Carcinoma, colon. Diabetes. Pacemaker. RADIATION DOSE: 16.91 CTDI (mGy) COMPARISON: [facility], CTA PULMONARY W CONTRAST W 3D, 07/29/2018. . TECHNIQUE: Multiple contiguous axial images were obtained through the abdomen. Images were obtained using multiple row detector helical technique. Using automated exposure control and adjustment of the mA and/or kV according to patient size, radiation dose was kept as low as reasonably achievable to o btain optimal diagnostic quality images. DICOM format image data is available electronically for rev iew and comparison. FINDINGS: Small bilateral effusions, right greater than left with basilar atelectasis. Pacer leads overlie righ t atrium and right ventricle. No acute findings in the liver, spleen, adrenals or pancreas. Probable layering sludge within the gallbladder. Complex cyst suspected in the left kidney. Right kidney unrem arkable. No hydronephrosis. No free fluid. No bowel obstruction. No adenopathy. Previous left hip replacement. Mild anasarca. CONCLUSION: 1. Mild anasarca. No acute findings within the abdomen and pelvis. Previous left hip replacement. 2. Small bilateral pleural effusions stable to slightly increased from July 29. Pacer leads pres ent. Electronically signed by: Heriberto Munoz MD Board Certified Radiologist 08/03/2018 12:35 PM EST
[2018-08-03] MEDS: Furosemide 40 MG Tablet PO SCH (17:20)
[2018-08-03] MEDS ORDERED: Pharmacy Ordered Lab Info OTHER ONE (19:45)
--- NOTE | 2018-08-03 20:52 | P.PNCA ---
Subjective Interval history: No new event. patiently waiting for MAYUR Medications and Allergies Active Medications: Active Medications Acetaminophen (Tylenol) 650 mg PO Q4H PRN PRN Reason: Temp > 100.4 Last Admin: 08/01/18 21:04 Dose: 650 mg Al Hydroxide/Mg Hydroxide (Milk Of Magnesia Liq) 30 ml PO Q12H PRN PRN Reason: Mild Constipation Albuterol (Duoneb Neb (Prn)) 1 ampul NEB Q6HR NEB PRN PRN Reason: SHORTNESS OF BREATH Bisacodyl (Dulcolax Supp) 10 mg RECTAL DAILY PRN PRN Reason: SEVERE CONSITIPATION Carvedilol (Coreg) 3.125 mg PO BID [facility] Last Admin: 08/03/18 08:32 Dose: 3.125 mg Dextrose (D50w Vial) 50 ml IV.PUSH UNSCH PRN PRN Reason: PER HYPOGLYCEMIA PROTOCOL Furosemide (Lasix) 40 mg PO BID@0900,1800 [facility] Last Admin: 08/03/18 17:20 Dose: 40 mg Glucagon (Glucagon Inj) 1 mg OTHER PRN PRN PRN Reason: for Hypoglycemia Protocol Guaifenesin/Dextromethorphan (Robitussin Dm Liq) 10 ml PO Q4H PRN PRN Reason: COUGH Last Admin: 07/29/18 20:32 Dose: 10 ml Heparin Sodium/Dextrose (Heparin/D5w 25,000 U/250 Ml) 25,000 unit in 250 mls @ 0 mls/hr IV.CONT TITRATE PRN; Protocol PRN Reason: Per Protocol Piperacillin/Tazobactam/Dextrose (Zosyn 3.375 Gm Premix) 3.375 gm in 50 mls @ 100 mls/hr IV.SIG Q6H [facility] Last Admin: 08/03/18 17:20 Dose: 50 mls/hr Insulin Aspart (Novolog Insulin Correctional Sugar Inj) 0 unit SQ ACHS [facility]; Protocol Last Admin: 08/03/18 17:20 Dose: 5 unit Lactobacillus Acidophilus (Lactinex) 1 tab PO TID [facility] Last Admin: 08/03/18 17:20 Dose: 1 tab Lactulose (Lactulose Liq) 30 ml PO DAILY PRN PRN Reason: SEVERE CONSITIPATION Lisinopril (Prinivil) 5 mg PO DAILY [facility] Last Admin: 08/03/18 08:32 Dose: 5 mg Ondansetron HCl (Zofran Inj) 4 mg IV.PUSH Q6H PRN PRN Reason: NAUSEA OR VOMITING Senna/Docusate Sodium (Isamar-Colace) 1 tab PO BID [facility] Last Admin: 08/03/18 08:32 Dose: 1 tab Sennosides (Senokot) 17.2 mg PO Q12H PRN PRN Reason: Moderate Constipation Sodium Chloride (Ns Flush) 2 ml IV.FLUSH BID [facility] Last Admin: 08/03/18 08:32 Dose: 2 ml Allergies Allergy/AdvReac Type Severity Reaction Status Date / Time No Known Allergies Allergy Verified 07/29/18 01:56 Home Medications Medication Instructions Recorded Confirmed Type No Known Home Medications 07/29/18 07/29/18 History Physical Exam Vital signs: Vital Signs 08/02/18 21:00 08/02/18 22:00 08/02/18 23:00 Temperature Pulse Rate 68 58 L 64 Respiratory Rate Blood Pressure Pulse Oximetry 08/03/18 00:00 08/03/18 01:00 08/03/18 02:00 Temperature 98.0 F Pulse Rate 60 64 60 Respiratory Rate 18 Blood Pressure 115/64 Pulse Oximetry 98 08/03/18 03:00 08/03/18 04:00 08/03/18 05:00 Temperature Pulse Rate 61 65 90 Respiratory Rate 18 Blood Pressure 122/73 Pulse Oximetry 97 08/03/18 06:00 08/03/18 07:00 08/03/18 07:59 Temperature 97.2 F L Pulse Rate 52 L 66 65 Respiratory Rate Blood Pressure 142/90 H Pulse Oximetry 96 08/03/18 08:00 08/03/18 09:00 08/03/18 10:00 Temperature Pulse Rate 70 64 60 Respiratory Rate Blood Pressure Pulse Oximetry 08/03/18 11:00 08/03/18 11:43 08/03/18 12:00 Temperature 99.0 F Pulse Rate 67 61 66 Respiratory Rate 19 Blood Pressure 125/65 Pulse Oximetry 98 08/03/18 13:00 08/03/18 14:00 08/03/18 15:00 Temperature Pulse Rate 68 80 60 Respiratory Rate Blood Pressure Pulse Oximetry 08/03/18 15:55 08/03/18 16:00 08/03/18 17:00 Temperature 98.7 F Pulse Rate 62 64 62 Respiratory Rate 18 Blood Pressure 123/71 Pulse Oximetry 98 08/03/18 18:00 08/03/18 19:00 Temperature Pulse Rate 60 50 L Respiratory Rate Blood Pressure Pulse Oximetry Intake & Output 08/03/18 08/03/18 08/04/18 06:59 18:59 06:59 Intake Total 1147.5 / 1147.5 740 / 740 Output Total 300 / 300 1020 / 1020 Balance 847.5 / 847.5 -280 / -280 Weight 110 kg Intake: IV 667.5 / 667.5 100 / 100 Doxy 100 Inj 100 MG In NS Inj 100 / 100 100 ML @ 100 mls/hr IV.SIG Q12H [facility]INI Rx#:[id number] Zosyn 3.375 GM Premix 3.375 gm 50 / 50 100 / 100 In 50 ml @ 100 mls/hr IV.SIG Q6H NALINI Rx#:[id number] Vancomycin Inj 1,750 MG In NS 517.5 / 517.5 Inj 500 ML @ 250 mls/hr IV.SIG Q18H NALINI Rx#:[id number] Oral 480 / 480 640 / 640 Output: Urine 300 / 300 1020 / 1020 Other: # Voids 3 Date of Last Bowel Movement 08/03/18 08/03/18 # Bowel Movements 1 0 Narrative: GENERAL: AAO x3, appears comfortable speaking full sentences however he is bundled up in blankets and with a sweater and hoodie claiming to be very cold and having chills SKIN: Warm and dry. HEAD: Atraumatic. Normocephalic. EYES: Pupils equal and round. No scleral icterus. No injection or drainage. ENT: No nasal bleeding or discharge. Mucous membranes pink and moist. NECK: Trachea midline. No JVD. CARDIOVASCULAR: Regular rate and rhythm. Permanent pacemaker in the left anterior chest wall RESPIRATORY: No accessory muscle use. Clear to auscultation. Breath sounds equal bilaterally. GASTROINTESTINAL: Abdomen soft, non-tender, nondistended. MUSCULOSKELETAL: Extremities without clubbing, cyanosis. No obvious deformities. 1+ bilateral lower extremity edema, tense to palpation with slight oozing NEUROLOGICAL: Awake and alert. No obvious cranial nerve deficits. Motor grossly within normal limits. Five out of 5 muscle strength in the arms and legs. Normal speech. PSYCHIATRIC: Appropriate mood and affect; insight and judgment normal. Results 08/03/18 07:38 08/03/18 07:38 Cardiac Enzymes 08/02/18 Range/Units 06:17 AST 26 (15-37) U/L CBC 08/02/18 08/03/18 Range/Units 06:17 07:38 WBC 16.5 H 12.6 H (4.0-11.0) th/mm3 RBC 4.71 4.78 (4.50-5.90) mil/mm3 Hgb 14.0 14.5 (13.0-17.0) gm/dL Hct 42.0 43.9 (39.0-51.0) % Plt Count 232 219 (150-450) th/mm3 Neut # (Auto) 12.6 H 8.7 H (1.8-7.7) th/mm3 Lymph # (Auto) 2.5 2.5 (1.0-4.8) th/mm3 [place] # (Auto) 1.2 H 1.2 H (0.0-0.9) th/mm3 Eos # (Auto) 0.1 0.2 (0.0-0.4) th/mm3 Baso # (Auto) 0.0 0.1 (0.0-0.2) th/mm3 Comprehensive Metabolic Panel 08/02/18 08/02/18 08/03/18 Range/Units 06:17 15:31 07:38 Sodium 140 138 139 (136-145) meq/L Potassium 2.9 L* D 3.2 L 4.0 D (3.5-5.1) meq/L Chloride 99 99 102 (98-107) meq/L Carbon Dioxide 33.4 H 32.3 H 27.4 (21.0-32.0) meq/L BUN 27 H 25 H 24 H (7-18) mg/dL Creatinine 1.04 1.26 1.08 (0.60-1.30) mg/dL Calcium 7.9 L 7.9 L 8.2 L (8.5-10.1) mg/dL AST 26 (15-37) U/L ALT 36 (12-78) U/L Alkaline Phosphatase 124 H (45-117) U/L Total Protein 6.1 L (6.4-8.2) g/dL Albumin 2.1 L (3.4-5.0) g/dL Intake and Output 08/03/18 08/03/18 08/03/18 06:59 14:59 22:59 Intake Total 1147.5 / 1147.5 100 / 100 640 / 640 Output Total 300 / 300 1020 / 1020 Balance 847.5 / 847.5 100 / 100 -380 / -380 Intake: IV 667.5 / 667.5 100 / 100 Doxy 100 Inj 100 MG In NS Inj 100 / 100 100 ML @ 100 mls/hr IV.SIG Q12H [facility]INI Rx#:[id number] Zosyn 3.375 GM Premix 3.375 gm 50 / 50 100 / 100 In 50 ml @ 100 mls/hr IV.SIG Q6H [facility]ALINI Rx#:[id number] Vancomycin Inj 1,750 MG In NS 517.5 / 517.5 Inj 500 ML @ 250 mls/hr IV.SIG Q18H [facility]INI Rx#:[id number] Oral 480 / 480 640 / 640 Output: Urine 300 / 300 1020 / 1020 Other: # Voids 3 Date of Last Bowel Movement 08/03/18 08/02/16 08/03/18 # Bowel Movements 1 0 Weight 110 kg - Imaging and Cardiology Imaging: Impressions Abdomen/Pelvis CT 08/03/18 00:00 CONCLUSION: 1. Mild anasarca. No acute findings within the abdomen and pelvis. Previous left hip replacement. 2. Small bilateral pleural effusions stable to slightly increased from July 29. Pacer leads present. Assessment and Plan - Plan Assessment: Patient presented with dyspnea on exertion and lower extremity edema which has since improved with initiation of IV diuretic therapy. He was noted to have reduced LV systolic function, LVEF 30-35% on transthoracic echocardiogram with no significant valvular disease or notable elevation in pulmonary arterial pressures. Presenting symptoms sound consistent with acute decompensated systolic congestive heart failure. He also has a report of chills, rigors, and low-grade fever documented 100.8 F, leukocytosis WBC 21,000 with left shift consistent with subacute infectious process as he reports having these symptoms for the past few months in a cyclical nature. Given he has a dual-chamber permanent pacemaker, infectious endocarditis needs to be ruled out. Patient will require transesophageal echocardiogram. --Acute decompensated systolic congestive heart failure, currently appears near euvolemic possibly still mildly hypervolemic and diuresing on current Lasix 40 mg twice daily. --Cardiomyopathy, LVEF 30-35%. Etiology would be presumed ischemic given the level of coronary artery calcification diffusely, however he will require an ischemic evaluation at some point with either Lexiscan stress test versus coronary angiography. --Diffuse coronary artery calcification involving the LM, LAD, LCx, RCA by chest CTA which was negative for PE --Dyspnea on exertion, likely secondary to ADHF --Atrial flutter presumed by EKG on admission 05/28, currently in sinus rhythm by EKG 05/30. Will require device interrogation to verify and see if patient would be appropriate for chronic anticoagulation therapy. --Sepsis, with fever, leukocytosis, source currently unclear. ID consulted by primary team. Currently on empiric antibiotics. Recommendations: -He has been arranged for MAYUR on Saturday, n.p.o. after midnight Saturday. -Agree with initiation of carvedilol. -Start lisinopril 5 mg daily -Continue furosemide 40 mg twice daily until bump in creatinine. -Infectious workup and antibiotics I defer to ID and primary team. -Contact [employer] rep to obtain device interrogation. on 08/03/18. No significant change. Continue current plan. MAYUR in AM as plan I am seeing patient for Dr. Zechariah Garcia over the weekend
[2018-08-04] MEDS: Piperacil/Tazo 3.375 GM Premix 3.375 GM/50 ML PIGGYBACK IV.SIG SCH ×4 (05:35→23:31)
[2018-08-04] MEDS: Furosemide 40 MG Tablet PO SCH ×2 (08:18→17:45)
[2018-08-04] MEDS: Insulin NovoLOG Aspart Correctional Sugar Inj SQ SCH ×4 (08:18→21:16)
[2018-08-04] MEDS: Lisinopril 5 MG Tablet PO SCH (08:19)
[2018-08-04] MEDS: Senna/Docusate Sodium 8.6/50 MG Tablet PO SCH ×2 (08:19→21:17)
[2018-08-04] MEDS: Lactobacillus Acidophilus/L. Spores Tablet PO SCH ×3 (08:20→17:45)
--- NOTE | 2018-08-04 09:00 | P.PNCA ---
Subjective Interval history: Patient seen and examined. No events overnight. Still complaining of feeling "cold" but no rigors/chills and overall feeling better. NPO for MAYUR evaluation of cardiac valves and pacemaker leads for vegetations. Tele: no events. NSR. No atrial flutter since 07/31 Medications and Allergies Active Medications: Active Medications Acetaminophen (Tylenol) 650 mg PO Q4H PRN PRN Reason: Temp > 100.4 Last Admin: 08/01/18 21:04 Dose: 650 mg Al Hydroxide/Mg Hydroxide (Milk Of Magnesia Liq) 30 ml PO Q12H PRN PRN Reason: Mild Constipation Albuterol (Duoneb Neb (Prn)) 1 ampul NEB Q6HR NEB PRN PRN Reason: SHORTNESS OF BREATH Bisacodyl (Dulcolax Supp) 10 mg RECTAL DAILY PRN PRN Reason: SEVERE CONSITIPATION Carvedilol (Coreg) 3.125 mg PO BID [facility] Last Admin: 08/04/18 08:19 Dose: 3.125 mg Dextrose (D50w Vial) 50 ml IV.PUSH UNSCH PRN PRN Reason: PER HYPOGLYCEMIA PROTOCOL Furosemide (Lasix) 40 mg PO BID@0900,1800 [facility] Last Admin: 08/04/18 08:18 Dose: 40 mg Glucagon (Glucagon Inj) 1 mg OTHER PRN PRN PRN Reason: for Hypoglycemia Protocol Guaifenesin/Dextromethorphan (Robitussin Dm Liq) 10 ml PO Q4H PRN PRN Reason: COUGH Last Admin: 07/29/18 20:32 Dose: 10 ml Heparin Sodium/Dextrose (Heparin/D5w 25,000 U/250 Ml) 25,000 unit in 250 mls @ 0 mls/hr IV.CONT TITRATE PRN; Protocol PRN Reason: Per Protocol Piperacillin/Tazobactam/Dextrose (Zosyn 3.375 Gm Premix) 3.375 gm in 50 mls @ 100 mls/hr IV.SIG Q6H [facility] Last Infusion: 08/04/18 06:43 Dose: Infused Insulin Aspart (Novolog Insulin Correctional Sugar Inj) 0 unit SQ ACHS [facility]INI; Protocol Last Admin: 08/04/18 08:18 Dose: Not Given Lactobacillus Acidophilus (Lactinex) 1 tab PO TID [facility] Last Admin: 02/18/19 08:20 Dose: 1 tab Lactulose (Lactulose Liq) 30 ml PO DAILY PRN PRN Reason: SEVERE CONSITIPATION Lisinopril (Prinivil) 5 mg PO DAILY [facility] Last Admin: 08/04/18 08:19 Dose: 5 mg Ondansetron HCl (Zofran Inj) 4 mg IV.PUSH Q6H PRN PRN Reason: NAUSEA OR VOMITING Senna/Docusate Sodium (Isamar-Colace) 1 tab PO BID [facility] Last Admin: 08/04/18 08:19 Dose: 1 tab Sennosides (Senokot) 17.2 mg PO Q12H PRN PRN Reason: Moderate Constipation Sodium Chloride (Ns Flush) 2 ml IV.FLUSH BID [facility] Last Admin: 08/04/18 08:20 Dose: 2 ml Allergies Allergy/AdvReac Type Severity Reaction Status Date / Time No Known Allergies Allergy Verified 07/29/18 01:56 Home Medications Medication Instructions Recorded Confirmed Type No Known Home Medications 07/29/18 07/29/18 History Physical Exam Vital signs: Vital Signs 08/03/18 09:00 08/03/18 10:00 08/03/18 11:00 Temperature Pulse Rate 64 60 67 Respiratory Rate Blood Pressure Pulse Oximetry 08/03/18 11:43 08/03/18 12:00 08/03/18 13:00 Temperature 99.0 F Pulse Rate 61 66 68 Respiratory Rate 19 Blood Pressure 125/65 Pulse Oximetry 98 08/03/18 14:00 08/03/18 15:00 08/03/18 15:55 Temperature 98.7 F Pulse Rate 80 60 62 Respiratory Rate 18 Blood Pressure 123/71 Pulse Oximetry 98 08/03/18 16:00 08/03/18 17:00 08/03/18 18:00 Temperature Pulse Rate 64 62 60 Respiratory Rate Blood Pressure Pulse Oximetry 08/03/18 19:00 08/03/18 20:00 08/03/18 21:00 Temperature 98.6 F Pulse Rate 50 L 59 L 59 L Respiratory Rate 20 Blood Pressure 122/60 Pulse Oximetry 96 08/03/18 23:00 08/04/18 00:00 08/04/18 01:00 Temperature 98.2 F Pulse Rate 50 L 60 60 Respiratory Rate 18 Blood Pressure 106/64 Pulse Oximetry 96 08/04/18 02:00 08/04/18 03:00 08/04/18 04:00 Temperature Pulse Rate 68 56 L 75 Respiratory Rate 18 Blood Pressure 143/76 H Pulse Oximetry 95 08/04/18 05:00 08/04/18 06:00 Temperature Pulse Rate 62 66 Respiratory Rate Blood Pressure Pulse Oximetry Intake & Output 08/03/18 08/04/18 08/04/18 18:59 06:59 18:59 Intake Total 740 / 740 630 / 630 Output Total 1020 / 1020 200 / 200 Balance -280 / -280 430 / 430 Weight 110.9 kg Intake: IV 100 / 100 150 / 150 Zosyn 3.375 GM Premix 3.375 gm 100 / 100 150 / 150 In 50 ml @ 100 mls/hr IV.SIG Q6H [facility] Rx#:[id number] Oral 640 / 640 480 / 480 Output: Urine 1020 / 1020 200 / 200 Other: Date of Last Bowel Movement 08/03/18 08/03/18 # Bowel Movements 0 Narrative: GENERAL: AAO x3, appears comfortable speaking full sentences however he is bundled up in blankets and with a sweater and hoodie claiming to be cold SKIN: Warm and dry. HEAD: Atraumatic. Normocephalic. EYES: Pupils equal and round. No scleral icterus. No injection or drainage. ENT: No nasal bleeding or discharge. Mucous membranes pink and moist. NECK: Trachea midline. No JVD. CARDIOVASCULAR: Regular rate and rhythm. Permanent pacemaker in the left anterior chest wall RESPIRATORY: No accessory muscle use. Clear to auscultation. Breath sounds equal bilaterally. GASTROINTESTINAL: Abdomen soft, non-tender, nondistended. MUSCULOSKELETAL: Extremities without clubbing, cyanosis. No obvious deformities. 1+ bilateral lower extremity edema, tense to palpation with slight oozing NEUROLOGICAL: Awake and alert. No obvious cranial nerve deficits. Motor grossly within normal limits. Five out of 5 muscle strength in the arms and legs. Normal speech. PSYCHIATRIC: Appropriate mood and affect; insight and judgment normal. Results 08/03/18 07:38 08/03/18 07:38 CBC 08/03/18 Range/Units 07:38 WBC 12.6 H (4.0-11.0) th/mm3 RBC 4.78 (4.50-5.90) mil/mm3 Hgb 14.5 (13.0-17.0) gm/dL Hct 43.9 (39.0-51.0) % Plt Count 219 (150-450) th/mm3 Neut # (Auto) 8.7 H (1.8-7.7) th/mm3 Lymph # (Auto) 2.5 (1.0-4.8) th/mm3 [place] # (Auto) 1.2 H (0.0-0.9) th/mm3 Eos # (Auto) 0.2 (0.0-0.4) th/mm3 Baso # (Auto) 0.1 (0.0-0.2) th/mm3 Comprehensive Metabolic Panel 08/02/18 08/03/18 Range/Units 15:31 07:38 Sodium 138 139 (136-145) meq/L Potassium 3.2 L 4.0 D (3.5-5.1) meq/L Chloride 99 102 (98-107) meq/L Carbon Dioxide 32.3 H 27.4 (21.0-32.0) meq/L BUN 25 H 24 H (7-18) mg/dL Creatinine 1.26 1.08 (0.60-1.30) mg/dL Calcium 7.9 L 8.2 L (8.5-10.1) mg/dL Intake and Output 08/03/18 08/04/18 08/04/18 22:59 06:59 14:59 Intake Total 690 / 690 580 / 580 Output Total 1020 / 1020 200 / 200 Balance -330 / -330 380 / 380 Intake: IV 50 / 50 100 / 100 Zosyn 3.375 GM Premix 3.375 gm 50 / 50 100 / 100 In 50 ml @ 100 mls/hr IV.SIG Q6H [facility] Rx#:[id number] Oral 640 / 640 480 / 480 Output: Urine 1020 / 1020 200 / 200 Other: Date of Last Bowel Movement 08/03/18 08/03/18 # Bowel Movements 0 Weight 110.9 kg - Imaging and Cardiology Imaging: Impressions Abdomen/Pelvis CT 08/03/18 00:00 CONCLUSION: 1. Mild anasarca. No acute findings within the abdomen and pelvis. Previous left hip replacement. 2. Small bilateral pleural effusions stable to slightly increased from July 29. Pacer leads present. Assessment and Plan - Plan Assessment: Patient presented with dyspnea on exertion and lower extremity edema which has since improved with initiation of IV diuretic therapy. He was noted to have reduced LV systolic function, LVEF 30-35% on transthoracic echocardiogram with no significant valvular disease or notable elevation in pulmonary arterial pressures. Presenting symptoms sound consistent with acute decompensated systolic congestive heart failure. He also has a report of chills, rigors, and low-grade fever documented 100.8 F, leukocytosis WBC 21,000 with left shift consistent with subacute infectious process as he reports having these symptoms for the past few months in a cyclical nature. Given he has a dual-chamber permanent pacemaker, infectious endocarditis needs to be ruled out. Patient will require transesophageal echocardiogram. --Acute decompensated systolic congestive heart failure, improved and currently appears euvolemic, maintained on Lasix 40 mg twice daily. --Cardiomyopathy, LVEF 30-35%. Etiology would be presumed ischemic given the level of coronary artery calcification diffusely, however he will require an ischemic evaluation at some point with either Lexiscan stress test versus coronary angiography. --Diffuse coronary artery calcification involving the LM, LAD, LCx, RCA by chest CTA which was negative for PE --Calcification of the thoracic aorta --Dyspnea on exertion, resolved. likely was secondary to ADHF --Atrial flutter by EKG on admission 05/28, and confirmed by Pacemaker interrogation. currently in sinus rhythm. Patient has been maintained on heparin gtt during stay and would benefit from chronic anticoagulation therapy with elevated CHADS2-VASc score. continue heparin gtt pending findings of MAYUR today and consider transitioning to Eliquis 5mg bid vs coumadin if no vegetations identified. --Sepsis, with fever, leukocytosis, source currently unclear. GNR in 06/20 BCx. ID following. Currently on empiric antibiotics. Recommendations: -He has been arranged for MAYUR today, n.p.o. -Continue carvedilol and lisinopril 5 mg daily, uptitrate as BP tolerates as outpatient -Continue furosemide 40 mg twice daily -Infectious workup and antibiotics I defer to ID and primary team.
[2018-08-04 10:27] LABS: Calcium 8.3 mg/dL (8.5-10.1); Carbon Dioxide 33.5 meq/L (21.0-32.0); Potassium 3.2 meq/L (3.5-5.1)
[2018-08-04] MEDS ORDERED: Potassium Chloride Liq 20 MEQ/15 ML UDC PO ONE (12:00)
--- NOTE | 2018-08-04 14:01 | ECHRPT ---
Indication: ENDOCARDITIS CONCLUSIONS Echocardiogram consistent with infectious endocarditis. There is a 17mm x 5mm mobile echodensity observed on the pacemaker wire/catheter consistent with vegetation. The left ventricular systolic function is severely reduced with an estimated ejection fraction in th e range of 30-35%. There is global left ventricular dysfunction without distinct regional wall motion abnormality. There is mild plaque seen in the transverse aorta. Trace mitral valve regurgitation. There is trace tricuspid valve regurgitation. BP: / HR: Rhythm: Sinus Technical Quality:Excellent Medications The patient was premedicated with IV Propofol. Complications There were no complications prior to, during or in recovery from the transesophag eal echocardiogram.. Proc. Components The patient was brought to the diagnostic imaging area in a fasting state after o btaining an informed consent. The patient was premedicated with IV Propofol per the anesthesiologist. The MAYUR probe was passed into the posterior pharynx , mid-esophagus, distal esophagus, and gastric fundus. MAYUR was performed at multiple levels. The patient tolerated the procedure well and there were no complications. The patient was transferred to the floor in satisfactory condition.. FINDINGS LEFT VENTRICLE Normal left ventricular size. Wall thickness is normal. The left ventricular systolic function is severely reduced with an estimated ejection fraction in th e range of 30-35%. There is global left ventricular dysfunction without distinct regional wall motion abnormality. RIGHT VENTRICLE Normal right ventricular size and systolic function. A pacemaker wire is noted. LEFT ATRIUM The left atrial size is normal. RIGHT ATRIUM The right atrial size is normal. There is a 17mm x 5mm mobile echodensity observed on the pacemaker wire/catheter consistent with vegetation. ATRIAL APPENDAGES Normal left atrial appendage size with no evidence of thrombus formation. ATRIAL SEPTUM Normal atrial septal thickness without atrial level shunting by limited color doppler interrogation. AORTA The aortic root and proximal ascending aorta are normal in size on limited imaging. There is mild plaque seen in the transverse aorta. MITRAL VALVE Structurally normal mitral valve. Trace mitral valve regurgitation. No mitral valve stenosis. AORTIC VALVE Trileaflet aortic valve. Aortic valve sclerosis is present. No aortic valve regurgitation. No aortic valve stenosis. TRICUSPID VALVE Mild thickening of the tricuspid valve leaflets. There is trace tricuspid valve regurgitation. Pulmo nary arterial systolic pressure could not be estimated due to an insufficient tricuspid valve regurgitati on doppler jet for measurement. VESSELS Normal pulmonary venous inflow pattern is observed. PULMONARY VALVE The pulmonary valve is not well visualized. No pulmonary valve regurgitation. PERICADIUM No pericardial effusion. Zechariah Garcia (Electronically Signed) Final Date:04 August 2018 14:00
--- NOTE | 2018-08-04 14:55 | P.PNIM ---
Subjective Interval history: No overnight events. Afebrile. Status post MAYUR. Explained everything to the patient. Physical Exam Vital signs: Vital Signs 08/03/18 15:00 08/03/18 15:55 08/03/18 16:00 Temperature 98.7 F Pulse Rate 60 62 64 Respiratory Rate 18 Blood Pressure 123/71 Pulse Oximetry 98 08/03/18 17:00 08/03/18 18:00 08/03/18 19:00 Temperature Pulse Rate 62 60 50 L Respiratory Rate Blood Pressure Pulse Oximetry 08/03/18 20:00 08/03/18 21:00 08/03/18 23:00 Temperature 98.6 F Pulse Rate 59 L 59 L 50 L Respiratory Rate 20 Blood Pressure 122/60 Pulse Oximetry 96 08/04/18 00:00 08/04/18 01:00 08/04/18 02:00 Temperature 98.2 F Pulse Rate 60 60 68 Respiratory Rate 18 Blood Pressure 106/64 Pulse Oximetry 96 08/04/18 03:00 08/04/18 04:00 08/04/18 05:00 Temperature Pulse Rate 56 L 75 62 Respiratory Rate 18 Blood Pressure 143/76 H Pulse Oximetry 95 08/04/18 06:00 08/04/18 07:00 08/04/18 08:00 Temperature 97.8 F Pulse Rate 66 60 66 Respiratory Rate 18 Blood Pressure 135/64 Pulse Oximetry 99 08/04/18 09:00 08/04/18 10:00 08/04/18 13:50 Temperature 97.6 F Pulse Rate 60 59 L 61 Respiratory Rate 18 Blood Pressure 129/51 L Pulse Oximetry 100 Intake & Output 08/03/18 08/04/18 08/04/18 18:59 06:59 18:59 Intake Total 740 / 740 630 / 630 Output Total 1020 / 1020 200 / 200 Balance -280 / -280 430 / 430 Weight 110.9 kg Intake: IV 100 / 100 150 / 150 Zosyn 3.375 GM Premix 3.375 gm 100 / 100 150 / 150 In 50 ml @ 100 mls/hr IV.SIG Q6H [facility] Rx#:[id number] Oral 640 / 640 480 / 480 Output: Urine 1020 / 1020 200 / 200 Other: Date of Last Bowel Movement 08/03/18 08/03/18 08/03/18 # Bowel Movements 0 Narrative: GENERAL: NAD, A&Ox3 CARDIOVASCULAR: Regular rate and rhythm without murmurs, gallops, or rubs. RESPIRATORY: Breath sounds equal bilaterally. Crackles improving, almost clear. GASTROINTESTINAL: Abdomen soft, non-tender, nondistended. MUSCULOSKELETAL: No cyanosis, bilateral lower extremity trace edema SKIN: Warm and dry. NEURO: Alert awake and oriented x3, no focal neurological deficits. Results Labs CBC & Chem 7: 08/03/18 07:38 08/04/18 07:56 Labs: Microbiology 08/03/18 18:40 Stool Stool for WBCs - Final Rare WBC's 07/31/18 17:10 Blood - Peripheral Aerobic Blood Culture - Preliminary No growth in 4 days 07/31/18 17:10 Blood - Peripheral Anaerobic Blood Culture - Preliminary No growth in 4 days 07/31/18 17:05 Blood - Peripheral Aerobic Blood Culture - Preliminary No growth in 4 days 07/31/18 17:05 Blood - Peripheral Anaerobic Blood Culture - Final Escherichia coli 08/03/18 18:40 Stool Stool Occult Blood ([facility]ANELLE) - Final Hemoccult negative Assessment and Plan Plan 82-year-old male admitted secondary to shortness of breath, possible undiagnosed CHF with exacerbation Sepsis secondary to pneumonia with E.coli bacteremia-Patient with fever, leukocytosis, shortness of breath. Infectious disease consulted, continue Zosyn for now, stop vancomycin. Blood culture 1 anaerobic bottle showed gram- negative rods. Urinalysis unremarkable. Chest x-ray showed mild right base infiltrate, CT scan showed bilateral effusions. No diarrhea, C. difficile assay canceled. CT scan of the abdomen and pelvis showed mild anasarca, no acute findings. Small bilateral effusions stable. Duo nebs as needed. Endocarditis- Status post MAYUR today, showed 17 mm x 5 mm mobile echodensity observed on the pacemaker wire consistent with vegetation, infectious disease is aware, discussed with cardiology. Dr. Thorne consulted for lead replacement after sterility. Acute decompensated systolic congestive heart failure with atrial flutter- ejection fraction 30-35%, possibly near euvolemia, continue diuresis. Cardiology following. Etiology may be ischemic given coronary artery calcification diffusely, will need coronary angiography versus Lexiscan stress testing. CTA has calcification involving LM, LAD, LCx, RCA. Continue Coreg, lisinopril, continue Lasix, creatinine stable. Status post [employer] interrogation, only showed atrial fibrillation in 07/29/2018. Continue oxygen support. Atrial flutter-presumed by EKG on admission, presently sinus rhythm. Anticoagulation per cardiology. hypokalemia-resolved, magnesium is normal. Generalized weakness-from illness, wheeled walker, PT at rehab versus home health care. DVT prophylaxis: Heparin Progress Note: Quality VTE Deep Vein Thrombosis/Pulmonary Embolism Present on Admission: No
--- NOTE | 2018-08-04 19:39 | P.PNID ---
Subjective Remarks: alona Garcia: large vegetation on pacer lead BC with 1/4 E coli scheduled for pacer removal CT A/P neg Antibiotics: pip/t Allergies/Adverse Reactions: Allergies No Known Allergies Allergy (Verified 07/29/18 01:56) Objective Vital Signs 08/03/18 20:00 08/03/18 21:00 08/03/18 23:00 Temperature 98.6 F Pulse Rate 59 L 59 L 50 L Respiratory Rate 20 Blood Pressure 122/60 Pulse Oximetry 96 08/04/18 00:00 08/04/18 01:00 08/04/18 02:00 Temperature 98.2 F Pulse Rate 60 60 68 Respiratory Rate 18 Blood Pressure 106/64 Pulse Oximetry 96 08/04/18 03:00 08/04/18 04:00 08/04/18 05:00 Temperature Pulse Rate 56 L 75 62 Respiratory Rate 18 Blood Pressure 143/76 H Pulse Oximetry 95 08/04/18 06:00 08/04/18 07:00 08/04/18 08:00 Temperature 97.8 F Pulse Rate 66 60 66 Respiratory Rate 18 Blood Pressure 135/64 Pulse Oximetry 99 08/04/18 09:00 08/04/18 10:00 08/04/18 13:00 Temperature Pulse Rate 60 59 L 64 Respiratory Rate Blood Pressure Pulse Oximetry 08/04/18 13:50 08/04/18 14:00 08/04/18 15:00 Temperature 97.6 F Pulse Rate 61 61 60 Respiratory Rate 18 Blood Pressure 129/51 L Pulse Oximetry 100 08/04/18 16:00 08/04/18 17:00 08/04/18 18:00 Temperature 98.1 F Pulse Rate 60 60 84 Respiratory Rate 18 Blood Pressure 131/63 Pulse Oximetry 94 L 08/04/18 19:29 Temperature 97.9 F Pulse Rate 57 L Respiratory Rate 18 Blood Pressure 108/53 L Pulse Oximetry 94 L Intake & Output 08/04/18 08/04/18 08/05/18 06:59 18:59 06:59 Intake Total 630 / 630 770 / 770 50 / 50 Output Total 200 / 200 500 / 500 Balance 430 / 430 270 / 270 50 / 50 Weight 110.9 kg Intake: IV 150 / 150 50 / 50 50 / 50 Zosyn 3.375 GM Premix 3.375 gm 150 / 150 50 / 50 50 / 50 In 50 ml @ 100 mls/hr IV.SIG Q6H [facility] Rx#:[id number] Oral 480 / 480 720 / 720 Output: Urine 200 / 200 500 / 500 Other: # Voids 2 Date of Last Bowel Movement 08/03/18 08/04/18 08/04/18 # Bowel Movements 2 08/03/18 18:40 Stool Stool for WBCs - Final Rare WBC's 07/31/18 17:10 Blood - Peripheral Aerobic Blood Culture - Preliminary No growth in 4 days 07/31/18 17:10 Blood - Peripheral Anaerobic Blood Culture - Preliminary No growth in 4 days 07/31/18 17:05 Blood - Peripheral Aerobic Blood Culture - Preliminary No growth in 4 days 07/31/18 17:05 Blood - Peripheral Anaerobic Blood Culture - Final Escherichia coli 08/03/18 18:40 Stool Stool Occult Blood ([facility]EL[facility]) - Final Hemoccult negative Lab - Hematology Results 08/03/18 07:38 WBC 12.6 H RBC 4.78 Hgb 14.5 Hct 43.9 MCV 92.0 MCH 30.3 MCHC 33.0 RDW 14.5 Plt Count 219 MPV 9.8 Prelim Diff (Auto) Slide review pending Neut % (Auto) 68.8 Lymph % (Auto) 19.7 [place] % (Auto) 9.3 H Eos % (Auto) 1.7 Baso % (Auto) 0.5 Neut # (Auto) 8.7 H Lymph # (Auto) 2.5 [place] # (Auto) 1.2 H Eos # (Auto) 0.2 Baso # (Auto) 0.1 WBC Differential . Diff Scan Auto diff confirmed Differential Comment . Lab - Chemistry Results 08/02/18 08/03/18 08/03/18 20:34 07:38 07:52 Sodium 139 Potassium 4.0 D Chloride 102 Carbon Dioxide 27.4 Anion Gap 10 BUN 24 H Creatinine 1.08 Estimated GFR 65 L POC Glucose 240 H 172 H Random Glucose 165 H Calcium 8.2 L 08/03/18 08/03/18 08/03/18 11:42 17:15 20:51 Sodium Potassium Chloride Carbon Dioxide Anion Gap BUN Creatinine Estimated GFR POC Glucose 225 H 182 H 214 H Random Glucose Calcium 08/04/18 08/04/18 08/04/18 07:54 07:56 12:54 Sodium 141 Potassium 3.2 L D Chloride 100 Carbon Dioxide 33.5 H Anion Gap 8 BUN 21 H Creatinine 0.93 Estimated GFR 78 L POC Glucose 139 H 159 H Random Glucose 120 H Calcium 8.3 L 08/04/18 08/04/18 13:26 17:12 Sodium Potassium Chloride Carbon Dioxide Anion Gap BUN Creatinine Estimated GFR POC Glucose 142 H 293 H Random Glucose Calcium Imaging: ITS Impressions Abdomen/Pelvis CT 08/03/18 00:00 CONCLUSION: 1. Mild anasarca. No acute findings within the abdomen and pelvis. Previous left hip replacement. 2. Small bilateral pleural effusions stable to slightly increased from July 29. Pacer leads present. Physical Exam: GENERAL: NAD SKIN: Warm and dry. HEAD: Atraumatic. Normocephalic. EYES: Pupils equal and round. No scleral icterus. No injection or drainage. ENT: No nasal bleeding or discharge. Mucous membranes pink and moist. NECK: Trachea midline. No JVD. CARDIOVASCULAR: Regular rate and rhythm. Pacer i place L chest , site OK RESPIRATORY: No accessory muscle use. Clear to auscultation. Breath sounds equal bilaterally. GASTROINTESTINAL: Abdomen soft, non-tender, nondistended. Hepatic and splenic margins not palpable. MUSCULOSKELETAL: Extremities without clubbing, cyanosis, + edema. No obvious deformities. NEUROLOGICAL: Awake and alert. Non focal Normal speech. PSYCHIATRIC: Appropriate mood and affect; insight and judgment normal. 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
[2018-08-05] MEDS: Piperacil/Tazo 3.375 GM Premix 3.375 GM/50 ML PIGGYBACK IV.SIG SCH ×4 (05:50→23:38)
[2018-08-05] MEDS ORDERED: Regadenoson Inj 0.4 MG/5 ML Syringe IV.PUSH ONE (07:43)
--- NOTE | 2018-08-05 07:52 | P.PNCA ---
Subjective Interval history: Denies chest pain, shortness of breath, orthopnea. Has some leg swelling. Hoping to go home soon for his birthday. Medications and Allergies Active Medications: Active Medications Acetaminophen (Tylenol) 650 mg PO Q4H PRN PRN Reason: Temp > 100.4 Last Admin: 08/01/18 21:04 Dose: 650 mg Al Hydroxide/Mg Hydroxide (Milk Of Magnesia Liq) 30 ml PO Q12H PRN PRN Reason: Mild Constipation Albuterol (Duoneb Neb (Prn)) 1 ampul NEB Q6HR NEB PRN PRN Reason: SHORTNESS OF BREATH Albuterol (Albuterol Neb (Prn)) 2.5 mg NEB UNSCH PRN PRN Reason: SHORTNESS OF BREATH/WHEEZING Albuterol (Duoneb Neb (Prn)) 1 ampul NEB UNSCH PRN PRN Reason: SHORTNESS OF BREATH/WHEEZING Bisacodyl (Dulcolax Supp) 10 mg RECTAL DAILY PRN PRN Reason: SEVERE CONSITIPATION Carvedilol (Coreg) 3.125 mg PO BID [facility] Last Admin: 08/04/18 21:16 Dose: 3.125 mg Dextrose (D50w Vial) 50 ml IV.PUSH UNSCH PRN PRN Reason: PER HYPOGLYCEMIA PROTOCOL Furosemide (Lasix) 40 mg PO BID@0900,1800 [facility] Last Admin: 08/04/18 17:45 Dose: 40 mg Glucagon (Glucagon Inj) 1 mg OTHER PRN PRN PRN Reason: for Hypoglycemia Protocol Guaifenesin/Dextromethorphan (Robitussin Dm Liq) 10 ml PO Q4H PRN PRN Reason: COUGH Last Admin: 07/29/18 20:32 Dose: 10 ml Heparin Sodium/Dextrose (Heparin/D5w 25,000 U/250 Ml) 25,000 unit in 250 mls @ 0 mls/hr IV.CONT TITRATE PRN; Protocol PRN Reason: Per Protocol Piperacillin/Tazobactam/Dextrose (Zosyn 3.375 Gm Premix) 3.375 gm in 50 mls @ 100 mls/hr IV.SIG Q6H [facility] Last Infusion: 08/05/18 06:19 Dose: Infused Insulin Aspart (Novolog Insulin Correctional Sugar Inj) 0 unit SQ ACHS [facility]; Protocol Last Admin: 08/04/18 21:16 Dose: 25 unit Lactobacillus Acidophilus (Lactinex) 1 tab PO TID [facility] Last Admin: 08/04/18 17:45 Dose: 1 tab Lactulose (Lactulose Liq) 30 ml PO DAILY PRN PRN Reason: SEVERE CONSITIPATION Lisinopril (Prinivil) 5 mg PO DAILY [facility] Last Admin: 08/04/18 08:19 Dose: 5 mg Ondansetron HCl (Zofran Inj) 4 mg IV.PUSH Q6H PRN PRN Reason: NAUSEA OR VOMITING Regadenoson (Lexiscan Inj) 0.4 mg IV.PUSH ONCE ONE Stop: 08/05/18 07:44 Senna/Docusate Sodium (Isamar-Colace) 1 tab PO BID [facility] Last Admin: 08/04/18 21:17 Dose: Not Given Sennosides (Senokot) 17.2 mg PO Q12H PRN PRN Reason: Moderate Constipation Sodium Chloride (Ns Flush) 2 ml IV.FLUSH BID [facility] Last Admin: 08/04/18 21:17 Dose: 2 ml Allergies Allergy/AdvReac Type Severity Reaction Status Date / Time No Known Allergies Allergy Verified 07/29/18 01:56 Home Medications Medication Instructions Recorded Confirmed Type No Known Home Medications 07/29/18 07/29/18 History Physical Exam Vital signs: Vital Signs 08/04/18 08:00 08/04/18 09:00 08/04/18 10:00 Temperature 97.8 F Pulse Rate 66 60 59 L Respiratory Rate 18 Blood Pressure 135/64 Pulse Oximetry 99 08/04/18 13:00 08/04/18 13:50 08/04/18 14:00 Temperature 97.6 F Pulse Rate 64 61 61 Respiratory Rate 18 Blood Pressure 129/51 L Pulse Oximetry 100 08/04/18 15:00 08/04/18 16:00 08/04/18 17:00 Temperature 98.1 F Pulse Rate 60 60 60 Respiratory Rate 18 Blood Pressure 131/63 Pulse Oximetry 94 L 08/04/18 18:00 08/04/18 19:00 08/04/18 19:29 Temperature 97.9 F Pulse Rate 84 90 57 L Respiratory Rate 18 Blood Pressure 108/53 L Pulse Oximetry 94 L 08/04/18 20:00 08/04/18 21:00 08/04/18 22:00 Temperature Pulse Rate 80 78 94 H Respiratory Rate Blood Pressure Pulse Oximetry 08/04/18 23:00 08/05/18 00:00 08/05/18 01:00 Temperature 98.8 F Pulse Rate 81 81 78 Respiratory Rate 16 Blood Pressure 122/49 L Pulse Oximetry 95 08/05/18 02:00 08/05/18 03:00 08/05/18 03:59 Temperature 99.0 F Pulse Rate 70 80 67 Respiratory Rate 14 Blood Pressure 148/74 H Pulse Oximetry 96 08/05/18 04:00 08/05/18 05:00 08/05/18 05:15 Temperature Pulse Rate 65 59 L 57 L Respiratory Rate Blood Pressure Pulse Oximetry Intake & Output 08/04/18 08/05/18 08/05/18 18:59 06:59 18:59 Intake Total 770 / 770 870 / 870 Output Total 500 / 500 850 / 850 Balance 270 / 270 20 / 20 Weight 244 lb 11.41 oz Intake: IV 50 / 50 150 / 150 Zosyn 3.375 GM Premix 3.375 gm 50 / 50 150 / 150 In 50 ml @ 100 mls/hr IV.SIG Q6H NALINI Rx#:[id number] Oral 720 / 720 720 / 720 Output: Urine 500 / 500 850 / 850 Other: # Voids 2 1 Date of Last Bowel Movement 08/04/18 08/05/18 # Bowel Movements 2 1 Narrative: GENERAL: Well-developed well-nourished. In no acute distress. NECK: No carotid bruits. No JVD. CARDIOVASCULAR: Regular rate and rhythm. No murmur appreciated. RESPIRATORY: No accessory muscle use. Clear to auscultation. Breath sounds equal bilaterally. MUSCULOSKELETAL: Trace pretibial edema bilaterally. Compression stockings and clean dressings in place over lower extremity wounds. NEUROLOGICAL: Awake and alert. Normal speech. Results 08/03/18 07:38 08/04/18 07:56 CBC 08/03/18 Range/Units 07:38 WBC 12.6 H (4.0-11.0) th/mm3 RBC 4.78 (4.50-5.90) mil/mm3 Hgb 14.5 (13.0-17.0) gm/dL Hct 43.9 (39.0-51.0) % Plt Count 219 (150-450) th/mm3 Neut # (Auto) 8.7 H (1.8-7.7) th/mm3 Lymph # (Auto) 2.5 (1.0-4.8) th/mm3 [place] # (Auto) 1.2 H (0.0-0.9) th/mm3 Eos # (Auto) 0.2 (0.0-0.4) th/mm3 Baso # (Auto) 0.1 (0.0-0.2) th/mm3 Comprehensive Metabolic Panel 08/03/18 08/04/18 Range/Units 07:38 07:56 Sodium 139 141 (136-145) meq/L Potassium 4.0 D 3.2 L D (3.5-5.1) meq/L Chloride 102 100 (98-107) meq/L Carbon Dioxide 27.4 33.5 H (21.0-32.0) meq/L BUN 24 H 21 H (7-18) mg/dL Creatinine 1.08 0.93 (0.60-1.30) mg/dL Calcium 8.2 L 8.3 L (8.5-10.1) mg/dL Intake and Output 08/04/18 08/05/18 08/05/18 22:59 06:59 14:59 Intake Total 820 / 820 820 / 820 Output Total 500 / 500 850 / 850 Balance 320 / 320 -30 / -30 Intake: IV 100 / 100 100 / 100 Zosyn 3.375 GM Premix 3.375 gm 100 / 100 100 / 100 In 50 ml @ 100 mls/hr IV.SIG Q6H NALINI Rx#:[id number] Oral 720 / 720 720 / 720 Output: Urine 500 / 500 850 / 850 Other: # Voids 2 1 Date of Last Bowel Movement 08/04/18 08/05/18 # Bowel Movements 2 1 Weight 244 lb 11.41 oz - Imaging and Cardiology Imaging: Impressions Abdomen/Pelvis CT 08/03/18 00:00 CONCLUSION: 1. Mild anasarca. No acute findings within the abdomen and pelvis. Previous left hip replacement. 2. Small bilateral pleural effusions stable to slightly increased from July 29. Pacer leads present. Assessment and Plan - Plan Assessment: Patient presented with dyspnea on exertion and lower extremity edema which has since improved with initiation of IV diuretic therapy. He was noted to have reduced LV systolic function, LVEF 30-35% on transthoracic echocardiogram with no significant valvular disease or notable elevation in pulmonary arterial pressures. Presenting symptoms sound consistent with acute decompensated systolic congestive heart failure. He also has a report of chills, rigors, and low-grade fever documented 100.8 F, leukocytosis WBC 21,000 with left shift consistent with subacute infectious process as he reports having these symptoms for the past few months in a cyclical nature. Given he has a dual-chamber permanent pacemaker, infectious endocarditis needs to be ruled out. Patient will require transesophageal echocardiogram. --Acute decompensated systolic congestive heart failure, improved and currently appears euvolemic, maintained on Lasix 40 mg twice daily. --Cardiomyopathy, LVEF 30-35%. Etiology would be presumed ischemic given the level of coronary artery calcification diffusely, however he will require an ischemic evaluation at some point --Diffuse coronary artery calcification involving the LM, LAD, LCx, RCA by chest CTA which was negative for PE --Calcification of the thoracic aorta --Dyspnea on exertion, resolved. likely was secondary to ADHF --Atrial flutter by EKG on admission 05/28, and confirmed by Pacemaker interrogation. currently in sinus rhythm. Patient has been maintained on heparin gtt during stay and would benefit from chronic anticoagulation therapy with elevated CHADS2-VASc score. --Sepsis, with fever, leukocytosis. GNR in 06/20 BCx. ID following. Currently on empiric antibiotics. 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 Recommendations: -N.p.o. for Lexiscan today -Continue carvedilol and lisinopril 5 mg daily, uptitrate as BP tolerates as outpatient -Continue furosemide 40 mg twice daily until creatinine bump and then decrease. -Infectious workup and antibiotics I defer to ID and primary team. -Dr. Thorne consulted for lead removal. -Continue heparin gtt for stroke prevention with AF for now pending procedures. Transition to Eliquis vs Coumadin at MD. Discussed Condition With: Patient, Dr. Garcia
--- NOTE | 2018-08-05 07:55 | MB ---
cc: Sugar Thorne MD DATE: 08/04/2018 REASON FOR CONSULT: Congestive heart failure, vegetation, endocarditis. HISTORY OF PRESENT ILLNESS: Mr. Gabriel is an 82-year-old short old man with history of AV block, pacemaker dependent, congestive heart failure with ejection fraction 20%, RV pacing, shortness of breath on minimal activity was admitted due to shortness of breath. In heart failure. During hospitalization, echo indicate vegetation. There is a blood culture from 07/31/2018. That report is . Echocardiogram indicated there is a vegetation at the lead. I was consulted by Dr. Garcia for evaluation and possible this was in the future. The chart was reviewed. The patient was evaluated. ALLERGIES: NONE. SOCIAL HISTORY: The gentleman at this point denies smoking and drinking. FAMILY HISTORY: Noncontributory to his current medical condition. MEDICATIONS: He is on Coreg 2.125 mg twice a day. He is on albuterol inhaler and Lasix 40 mg p.o. twice a day. He is on heparin. He is on lisinopril 5 mg a day, Zofran piperacillin, tazobactam. REVIEW OF SYSTEMS: Shortness of breath, but no chest pain, no chest discomfort. PHYSICAL EXAMINATION: GENERAL: Alert, fully oriented. VITAL SIGNS: Blood pressure on evaluation was 121/63, pulse 59, respiratory rate 18. LUNGS: Ventilated. CARDIOVASCULAR: S1, S2. There is no gallop, no murmur. ABDOMEN: Obese. No mass, no bruit. EXTREMITIES: Some edema. Electrocardiogram showed AV sequential pacing. LABORATORY DATA: Hemoglobin is 14.5, white blood cell 12.6, platelets report normal. INR 1.4, APTT 21.8. Potassium 3.2, creatinine 0.93, glucose was 293. Blood culture was positive for . ASSESSMENT AND RECOMMENDATIONS: Mr. Gabriel is currently stable. Last echocardiogram indicate an ejection fraction of around 20%. The patient has shortness of breath, cardiomyopathy. He is on optimal medical treatment. Apparently the ejection fraction was low previously. He is RV pacing. There is vegetation in the tricuspid valve as well as the lead. This gentleman is going to need a lead extraction. At the same time, he is going to need a temporary pacing. Apparently, he is pacemaker dependent, but I am going to contact the [employer] team for device evaluation. This lead needs to be extracted. It was implanted in 2006. Case discussed with the patient. I am going to schedule lead removal and if necessary temporary pacer insertion. Subsequently, when this gentleman is cleared by ID, then biventricular pacer defibrillator will be implanted. I will follow this gentleman during hospitalization. Case extensively discussed with him. Sugar Thorne MD HS/sv/do , 10:31 PM , 10:41 PM
[2018-08-05] MEDS: Lisinopril 5 MG Tablet PO SCH (08:23)
[2018-08-05] MEDS: Senna/Docusate Sodium 8.6/50 MG Tablet PO SCH ×2 (08:24→21:22)
[2018-08-05] MEDS: Lactobacillus Acidophilus/L. Spores Tablet PO SCH ×3 (08:24→18:06)
[2018-08-05] MEDS: Insulin NovoLOG Aspart Correctional Sugar Inj SQ SCH ×4 (08:29→21:16)
--- NOTE | 2018-08-05 09:36 | P.PNIM ---
Subjective Interval history: s/p Lexiscan. Overnight no complaints, denies any chest pain, fever, shortness of breath, chills or palpitations. Physical Exam Vital signs: Vital Signs 08/04/18 10:00 08/04/18 13:00 08/04/18 13:50 Temperature 97.6 F Pulse Rate 59 L 64 61 Respiratory Rate 18 Blood Pressure 129/51 L Pulse Oximetry 100 08/04/18 14:00 08/04/18 15:00 08/04/18 16:00 Temperature 98.1 F Pulse Rate 61 60 60 Respiratory Rate 18 Blood Pressure 131/63 Pulse Oximetry 94 L 08/04/18 17:00 08/04/18 18:00 08/04/18 19:00 Temperature Pulse Rate 60 84 90 Respiratory Rate Blood Pressure Pulse Oximetry 08/04/18 19:29 08/04/18 20:00 08/04/18 21:00 Temperature 97.9 F Pulse Rate 57 L 80 78 Respiratory Rate 18 Blood Pressure 108/53 L Pulse Oximetry 94 L 08/04/18 22:00 08/04/18 23:00 08/05/18 00:00 Temperature 98.8 F Pulse Rate 94 H 81 81 Respiratory Rate 16 Blood Pressure 122/49 L Pulse Oximetry 95 08/05/18 01:00 08/05/18 02:00 08/05/18 03:00 Temperature Pulse Rate 78 70 80 Respiratory Rate Blood Pressure Pulse Oximetry 08/05/18 03:59 08/05/18 04:00 08/05/18 05:00 Temperature 99.0 F Pulse Rate 67 65 59 L Respiratory Rate 14 Blood Pressure 148/74 H Pulse Oximetry 96 08/05/18 05:15 08/05/18 08:00 Temperature 98.0 F Pulse Rate 57 L 73 Respiratory Rate 18 Blood Pressure 154/81 H Pulse Oximetry 99 Intake & Output 08/04/18 08/05/18 08/05/18 18:59 06:59 18:59 Intake Total 770 / 770 870 / 870 Output Total 500 / 500 850 / 850 Balance 270 / 270 20 / 20 Weight 111 kg Intake: IV 50 / 50 150 / 150 Zosyn 3.375 GM Premix 3.375 gm 50 / 50 150 / 150 In 50 ml @ 100 mls/hr IV.SIG Q6H [facility]I Rx#:[id number] Oral 720 / 720 720 / 720 Output: Urine 500 / 500 850 / 850 Other: # Voids 2 1 Date of Last Bowel Movement 08/04/18 08/05/18 # Bowel Movements 2 1 Narrative: GENERAL: NAD, A&Ox3 CARDIOVASCULAR: Regular rate and rhythm without murmurs, gallops, or rubs. RESPIRATORY: Breath sounds equal bilaterally. Clear breath sounds, no crackles. GASTROINTESTINAL: Abdomen soft, non-tender, nondistended. MUSCULOSKELETAL: No cyanosis, bilateral lower extremity trace edema SKIN: Warm and dry. NEURO: Alert awake and oriented x3, no focal neurological deficits. Results Labs CBC & Chem 7: 08/05/18 11:54 08/05/18 11:54 Labs: Microbiology 08/03/18 18:40 Stool Stool for WBCs - Final Rare WBC's 07/31/18 17:10 Blood - Peripheral Aerobic Blood Culture - Preliminary No growth in 4 days 07/31/18 17:10 Blood - Peripheral Anaerobic Blood Culture - Preliminary No growth in 4 days 07/31/18 17:05 Blood - Peripheral Aerobic Blood Culture - Preliminary No growth in 4 days 07/31/18 17:05 Blood - Peripheral Anaerobic Blood Culture - Final Escherichia coli Assessment and Plan Plan 82-year-old male admitted secondary to shortness of breath Sepsis secondary to pneumonia with E.coli bacteremia-Patient with fever, leukocytosis, shortness of breath. Infectious disease consulted, continue Zosyn for now. Blood culture 1 anaerobic bottle showed gram-negative rods. Urinalysis unremarkable. Chest x-ray showed mild right base infiltrate, CT scan showed bilateral effusions. No diarrhea, C. difficile assay canceled. CT scan of the abdomen and pelvis showed mild anasarca, no acute findings. Small bilateral effusions stable. Duo nebs as needed. 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 Dr. Thorne consulted, pacemaker lead will need to be removed, will need to get tissue culture, possible placement of temporary pacer, and then after sterility, will need to be replaced with a biventricular defibrillator. Per ID, after pacer removal, switch Zosyn to ceftriaxone. Acute decompensated systolic congestive heart failure with atrial flutter- ejection fraction 30-35%, continue diuresis. Cardiology following. Etiology may be ischemic given coronary artery calcification diffusely, CTA has calcification involving LM, LAD, LCx, RCA. Continue lisinopril, continue Lasix BID until there's crea bump and then backoff, increase Coreg, BP still elevated, HR still on the high side. Status post [employer] interrogation, only showed atrial fibrillation in 07/29/2018. Continue oxygen support. Lexiscan done, ejection fraction 37%, global hypokinesis, but no reversible ischemia noted. Check BMP tomorrow. Atrial flutter-presumed by EKG on admission, presently sinus rhythm. Anticoagulation per cardiology, currently on heparin drip, switch to Eliquis versus Coumadin on discharge. Hypokalemia-replace, recheck BMP and magnesium today. Generalized weakness-from illness, wheeled walker, PT at rehab versus home health care. DVT prophylaxis: Heparin drip Progress Note: Quality VTE Deep Vein Thrombosis/Pulmonary Embolism Present on Admission: No
--- NOTE | 2018-08-05 11:08 | NM ---
EXAM DATE: 08/05/2018 10:57 AM EST AGE/SEX: 82 years / Male INDICATIONS:Congestive heart failure. . Shortness of breath for one day. CLINICAL DATA: This is the patient's initial encounter. Patient reports that signs and symptoms have been present for 1 day and indicates a pain score of 2/10. MEDICAL/SURGICAL HISTORY: Diabetes mellitus type II. Hypertension. Carcinoma, colon. . COMPARISON: . No external comparison. DOSE: 10 mCi Tc 99m Myoview at rest 30.1 mCi [id number] at stress 0.4 mg Lexiscan STRESS SYMPTOMS: None. EJECTION FRACTION: 37 % TECHNIQUE: The patient underwent pharmacologic stress with infusion of prescribed dose. Continuous ECG tracing was monitored during stress. Gated SPECT imaging was performed after stress and conventi onal SPECT imaging was performed at rest. The examination was performed on a SPECT/CT scanner, both attenuation and non-corrected datasets were reviewed. FINDINGS: Distribution: The maximum perfused segment at stress is in the anterolateral wall. Perfusion Study: There is a small size mild severity fixed defect involving the apex. No reversible ischemic segments are identified. Gated Study: There is global hypokinesis without akinesia or dyskinesia The ejection fraction is ca lculated at 37%. RISK CATEGORY: Intermediate (1-3 % Annual Mortality Rate) CONCLUSION: Global hypokinesis with decreased ejection fraction of 37%. No reversible ischemic segments are ident ified. Electronically signed by: Bakari Leung MD Board Certified Radiologist 08/05/2018 11:06 AM EST
[2018-08-05] MEDS: Furosemide 40 MG Tablet PO SCH ×2 (11:55→18:06)
[2018-08-05 12:03] LABS: Baso # (Auto) 0.1 th/mm3 (0.0-0.2); Baso % (Auto) 0.7 % (0.0-2.0); Eos # (Auto) 0.1 th/mm3 (0.0-0.4); Hematocrit 41.3 % (39.0-51.0); Hemoglobin 13.6 gm/dL (13.0-17.0); Lymph # (Auto) 2.4 th/mm3 (1.0-4.8); Mean Corpuscular HGB Conc 32.9 % (32.0-36.0); Mean Corpuscular Hemoglobin 29.5 pg (27.0-34.0); Mean Corpuscular Volume 89.7 fL (80.0-100.0); Mean Platelet Volume 8.5 fL (7.0-11.0); Mono # (Auto) 1.5 th/mm3 (0.0-0.9); Mono % (Auto) 10.9 % (0.0-8.0); Neut # (Auto) 9.3 th/mm3 (1.8-7.7); Neut % (Auto) 69.4 % (16.0-70.0); Platelet Count 272 th/mm3 (150-450); Red Blood Count 4.61 mil/mm3 (4.50-5.90); Red Cell Distribution Width 14.4 % (11.6-17.2); White Blood Count 13.4 th/mm3 (4.0-11.0)
[2018-08-05] MEDS: Carvedilol 6.25 MG Tablet PO SCH ×2 (12:18→21:01)
[2018-08-05 12:21] LABS: Calcium 8.3 mg/dL (8.5-10.1); Carbon Dioxide 33.9 meq/L (21.0-32.0); Potassium 3.9 meq/L (3.5-5.1)
[2018-08-06] MEDS: Piperacil/Tazo 3.375 GM Premix 3.375 GM/50 ML PIGGYBACK IV.SIG SCH ×4 (06:13→23:38)
[2018-08-06 06:56] LABS: Calcium 8.1 mg/dL (8.5-10.1); Carbon Dioxide 33.7 meq/L (21.0-32.0); Potassium 3.3 meq/L (3.5-5.1)
[2018-08-06] MEDS: Heparin Drip 25,000 UNIT/250 ML BAG IV.CONT PRN ×2 (08:00→19:07)
[2018-08-06] MEDS: Furosemide 40 MG Tablet PO SCH ×2 (08:34→17:24)
[2018-08-06] MEDS: Lactobacillus Acidophilus/L. Spores Tablet PO SCH ×3 (08:34→17:24)
[2018-08-06] MEDS: Carvedilol 6.25 MG Tablet PO SCH ×2 (08:34→20:21)
[2018-08-06] MEDS: Lisinopril 5 MG Tablet PO SCH (08:35)
[2018-08-06] MEDS: Insulin NovoLOG Aspart Correctional Sugar Inj SQ SCH ×4 (08:35→20:22)
[2018-08-06] MEDS: Senna/Docusate Sodium 8.6/50 MG Tablet PO SCH ×2 (08:35→20:21)
[2018-08-06] MEDS ORDERED: Potassium Chloride Liq 20 MEQ/15 ML UDC PO ONE (09:00)
--- NOTE | 2018-08-06 10:09 | P.PNIM ---
Subjective Interval history: Follow-up for endocarditis No overnight events, no fever or chills. No chest pain or shortness of breath. Afebrile. Physical Exam Vital signs: Vital Signs 08/05/18 11:00 08/05/18 11:17 08/05/18 12:00 Temperature 98.2 F Pulse Rate 60 59 L 66 Respiratory Rate 17 Blood Pressure 138/69 Pulse Oximetry 97 08/05/18 13:00 08/05/18 14:00 08/05/18 15:00 Temperature Pulse Rate 79 60 60 Respiratory Rate Blood Pressure Pulse Oximetry 08/05/18 16:00 08/05/18 17:00 08/05/18 18:00 Temperature 98.7 F Pulse Rate 67 67 60 Respiratory Rate 18 Blood Pressure 138/57 L Pulse Oximetry 96 08/05/18 19:00 08/05/18 20:00 08/05/18 21:00 Temperature 97.5 F L Pulse Rate 58 L 67 68 Respiratory Rate 20 Blood Pressure 129/60 Pulse Oximetry 94 L 08/05/18 22:00 08/05/18 23:00 08/06/18 00:00 Temperature 98.3 F Pulse Rate 64 60 59 L Respiratory Rate 20 Blood Pressure 124/60 Pulse Oximetry 97 08/06/18 01:00 08/06/18 02:00 08/06/18 03:00 Temperature Pulse Rate 58 L 60 58 L Respiratory Rate 20 Blood Pressure Pulse Oximetry 08/06/18 04:00 08/06/18 05:00 08/06/18 06:00 Temperature 98 F Pulse Rate 61 60 58 L Respiratory Rate 20 Blood Pressure 149/78 H Pulse Oximetry 99 08/06/18 07:00 Temperature Pulse Rate 58 L Respiratory Rate Blood Pressure Pulse Oximetry Intake & Output 08/05/18 08/06/18 08/06/18 18:59 06:59 18:59 Intake Total 770 / 770 450 / 450 Output Total 300 / 300 250 / 250 Balance 470 / 470 200 / 200 Weight 111.1 kg Intake: IV 50 / 50 150 / 150 Zosyn 3.375 GM Premix 3.375 gm 50 / 50 150 / 150 In 50 ml @ 100 mls/hr IV.SIG Q6H NALINI Rx#:[id number] Oral 720 / 720 300 / 300 Output: Urine 300 / 300 250 / 250 Other: # Voids 5 Date of Last Bowel Movement 08/05/18 08/05/18 # Bowel Movements 1 Narrative: GENERAL: NAD, A&Ox3 CARDIOVASCULAR: Regular rate and rhythm without murmurs, gallops, or rubs. RESPIRATORY: Breath sounds equal bilaterally. Clear breath sounds, no crackles. GASTROINTESTINAL: Abdomen soft, non-tender, nondistended. MUSCULOSKELETAL: No cyanosis, bilateral lower extremity trace edema SKIN: Warm and dry. NEURO: Alert awake and oriented x3, no focal neurological deficits. Results Labs CBC & Chem 7: 08/05/18 11:54 08/06/18 06:12 Labs: Microbiology 07/31/18 17:10 Blood - Peripheral Aerobic Blood Culture - Final No growth in 5 days 07/31/18 17:10 Blood - Peripheral Anaerobic Blood Culture - Final No growth in 5 days 07/31/18 17:05 Blood - Peripheral Aerobic Blood Culture - Final No growth in 5 days 07/31/18 17:05 Blood - Peripheral Anaerobic Blood Culture - Final Escherichia coli Imaging Imaging: Impressions Myocardial Perfusion Scan Nuc Med 08/05/18 00:00 CONCLUSION: Global hypokinesis with decreased ejection fraction of 37%. No reversible ischemic segments are identified. Assessment and Plan Plan 82-year-old male admitted secondary to shortness of breath Sepsis secondary to pneumonia with E.coli bacteremia-Patient with fever, leukocytosis, shortness of breath. Infectious disease consulted, continue Zosyn for now. Blood culture 1 anaerobic bottle showed gram-negative rods. Urinalysis unremarkable. Chest x-ray showed mild right base infiltrate, CT scan showed bilateral effusions. No diarrhea, C. difficile assay canceled. CT scan of the abdomen and pelvis showed mild anasarca, no acute findings. Small bilateral effusions stable. Duo nebs as needed. 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 Dr. Thorne consulted, pacemaker lead will need to be removed, will need to get tissue culture, possible placement of temporary pacer, and then after sterility, will need to be replaced with a biventricular defibrillator. Per ID, after pacer removal, switch Zosyn to ceftriaxone. Acute decompensated systolic congestive heart failure with atrial flutter- ejection fraction 30-35%, continue diuresis. Cardiology following. Etiology may be ischemic given coronary artery calcification diffusely, CTA has calcification involving LM, LAD, LCx, RCA. Continue lisinopril, continue Lasix BID until there's crea bump and then backoff, Coreg, HR still on the high side. Status post [employer] interrogation, only showed atrial fibrillation in 07/29/2018. Continue oxygen support. Lexiscan done, ejection fraction 37%, global hypokinesis, but no reversible ischemia noted. Creatinine stable. Atrial flutter-presumed by EKG on admission, presently sinus rhythm. Continue Coreg, anticoagulation per cardiology, currently on heparin drip, switch to Eliquis versus Coumadin on discharge after surgery. Diabetes mellitus, blood glucose elevated-continue sliding scale insulin for now. Previously on metformin at home. Has been getting 15-20 units daily from sliding scale insulin. Will start Levemir 10 units today. Hypokalemia-replace again today. Recheck BMP tomorrow. Generalized weakness-from illness, wheeled walker, PT at rehab versus home health care. DVT prophylaxis: Heparin drip Progress Note: Quality VTE Deep Vein Thrombosis/Pulmonary Embolism Present on Admission: No
[2018-08-06] MEDS ORDERED: Insulin Detemir Inj 1,000 UNIT/10 ML Vial SQ SCH (21:00)
[2018-08-07 01:14] VITALS: RESP 16
[2018-08-07] MEDS: Piperacil/Tazo 3.375 GM Premix 3.375 GM/50 ML PIGGYBACK IV.SIG SCH (05:53)
[2018-08-07 06:50] LABS: Calcium 8.3 mg/dL (8.5-10.1); Carbon Dioxide 32.7 meq/L (21.0-32.0)
[2018-08-07] MEDS: Insulin NovoLOG Aspart Correctional Sugar Inj SQ SCH (08:44)
[2018-08-07] MEDS: Carvedilol 6.25 MG Tablet PO SCH (08:44)
[2018-08-07] MEDS: Furosemide 40 MG Tablet PO SCH (08:45)
[2018-08-07] MEDS: Senna/Docusate Sodium 8.6/50 MG Tablet PO SCH (08:45)
[2018-08-07] MEDS: Lisinopril 5 MG Tablet PO SCH (08:45)
[2018-08-07] MEDS: Lactobacillus Acidophilus/L. Spores Tablet PO SCH (08:45)
[2018-08-07 09:02] VITALS: BP 169/57; TEMP 98.7; O2SAT 96
[2018-08-07 10:33] VITALS: PULSE 62
--- NOTE | 2018-08-07 18:48 | P.DS ---
DS: Providers Date of admission: 08/01/18 10:32 Primary care physician: UNKNOWN Consults: 07/31/18 08:56 Consult to Cardiology Routine Consulting Provider: Deangelo Shah Does the patient have a Delivery Stock Clerk who follows them?: No Preferred Electrical Construction Project Manager:: Receptionist Clerk Physician Reason for Consultation: CHF (new diagnosis) Notified:: Office Spoke with:: Azalea Date Notified:: 07/31/18 Time Notified:: 09:06 Ordering Provider: MARIAN 07/31/18 16:48 Consult to Infectious Diseases Routine Consulting Provider: Rosa Ravi Reason for Consultation: Recurrent shivers (fevers documented here), has been chronic. Admitted with CHF exacerbation. Further work up with [facility] planned ( transferring to [facility]). Currently on doxycycline and zosyn. Notified:: Service Spoke with:: Ranulfo Date Notified:: 07/31/18 Time Notified:: 17:31 Ordering Provider: MARIAN 08/02/18 10:04 Consult to Infectious Diseases Routine Consulting Provider: Talia Cannon Preferred Pairer:: Talia Cannon Reason for Consultation: Fever, chills Notified:: Service Spoke with:: TYRONE Date Notified:: 08/02/18 Time Notified:: 10:22 Ordering Provider: ANA MARIA 08/04/18 13:24 Consult to Cardiology Routine Consulting Provider: Sugar Thorne Does the patient have a Delivery Stock Clerk who follows them?: No Preferred Electrical Construction Project Manager:: Sugar Thorne Reason for Consultation: Endocarditis, RA lead vegetation, lead extraction, cardiomyopathy. 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 Gabriel is an 82-year-old male. He came in secondary to shortness of breath. He is also been having lower extremity swelling. Pulmonary edema is present on exam. He has a history of pacemaker which by history it seems to have been placed secondary to arrhythmia, possibly bigeminy. He denies any chest pain. Lasix will be provided an echocardiogram obtained as patient cannot clarify whether or not he has a history of congestive heart failure. No other complaints at this time. Lab work does suggest CHF with the physical exam plus BNP elevation. DS: Summary 82-year-old male admitted secondary to shortness of breath Sepsis secondary to pneumonia with E.coli bacteremia-Patient with fever, leukocytosis, shortness of breath. Infectious disease consulted, continue Zosyn for now. Blood culture 1 anaerobic bottle showed gram-negative rods. Urinalysis unremarkable. Chest x-ray showed mild right base infiltrate, CT scan showed bilateral effusions. No diarrhea, C. difficile assay canceled. CT scan of the abdomen and pelvis showed mild anasarca, no acute findings. Small bilateral effusions stable. Duo nebs as needed. 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 Dr. Thorne consulted, pacemaker lead will need to be removed, will need to get tissue culture, possible placement of temporary pacer, and then after sterility, will need to be replaced with a biventricular defibrillator. Per ID, after pacer removal, switch Zosyn to ceftriaxone. Acute decompensated systolic congestive heart failure with atrial flutter- ejection fraction 30-35%, continue diuresis. Cardiology following. Etiology may be ischemic given coronary artery calcification diffusely, CTA has calcification involving LM, LAD, LCx, RCA. Continue lisinopril, continue Lasix BID until there's crea bump and then backoff, Coreg, HR still on the high side. Status post [employer] interrogation, only showed atrial fibrillation in 07/29/2018. Continue oxygen support. Lexiscan done, ejection fraction 37%, global hypokinesis, but no reversible ischemia noted. Creatinine stable. Atrial flutter-presumed by EKG on admission, presently sinus rhythm. Continue Coreg, anticoagulation per cardiology, currently on heparin drip, switch to Eliquis versus Coumadin on discharge after surgery. Diabetes mellitus, blood glucose elevated-continue sliding scale insulin for now. Previously on metformin at home. Has been getting 15-20 units daily from sliding scale insulin. Will start Levemir 10 units today. Hypokalemia-replace again today. Recheck BMP Generalized weakness-from illness, wheeled walker, PT at rehab versus home health care. DVT prophylaxis: Heparin drip Patient decided to leave AMA 08/07/18 Time Spent with Patient Total time spent providing and/or coordinating discharge services: >30 min Quality: VTE Deep Vein Thrombosis/Pulmonary Embolism Present on Admission: No Exam Narrative Exam Narrative: In NAD. Alert and awake and oriented x3 Results Labs on day of discharge: Labs from last 24 hours 08/07/18 08/07/18 08/07/18 07:54 05:57 05:57 APTT 112.5 H* D Sodium 143 Potassium 3.0 L Chloride 102 Carbon Dioxide 32.7 H Anion Gap 8 BUN 13 Creatinine 0.85 Estimated GFR 86 L POC Glucose 189 H Random Glucose 157 H Calcium 8.3 L 08/06/18 08/06/18 21:46 20:22 APTT 49.2 H D Sodium Potassium Chloride Carbon Dioxide Anion Gap BUN Creatinine Estimated GFR POC Glucose 180 H Random Glucose Calcium Impressions ITS Impressions Abdomen/Pelvis CT 08/03/18 00:00 CONCLUSION: 1. Mild anasarca. No acute findings within the abdomen and pelvis. Previous left hip replacement. 2. Small bilateral pleural effusions stable to slightly increased from July 29. Pacer leads present. Myocardial Perfusion Scan Nuc Med 08/05/18 00:00 CONCLUSION: Global hypokinesis with decreased ejection fraction of 37%. No reversible ischemic segments are identified. Discharge Plan Discharge Disposition Patient Disposition: 07 Against Medical Advice Discharge Order Discharge Orders: AMA Discharge (Routine); Ordered 08/07/18 Ordered By: Nataly Garland Physicians Team Primary Care Provider: JOCE, Attending Provider: Nataly Garland Other Providers: Deangelo Shah ; Rosa Ravi ; Talia Cannon ; Sugar Thorne Rxs /Orders / Referrals /Forms Prescriptions: No Action No Known Home Medications RF: 0 Referrals: UNKNOWN, [Primary Care Provider] - See Instructions Discharge Instructions Patient Printed Instructions: Heart Failure (DC), Transesophageal Echocardiogram (DC) Status ED Status: Admitted Observation Patient Discharge Information Discharge Date/Time: 08/07/18 11:11
== END 2018-08-07 11:11 | disposition left against medical advice (07) | DRG 871 ==
LOC: PH3 01:54 → PHEDDLT 01:54 → HCIS 08-01 11:07
PROVIDERS: ADMIT Hospitalist; ATTEND Hospitalist
CPT/HCPCS: 71010; 71045; 71275; 74176; 76937; 78452; 80048; 80053; 81001; 82272; 82948; 82962; 83520; 83735; 83880; 84436; 84443; 84481; 84484; 85025; 85379; 85610; 85730; 87040; 87077; 87186; 87205; 87493; 90774; 90776; 90784; 93005; 93017; 93306; 93312; 93320; 93325; 96365; 96366; 96372; 96374; 96375; 96376; 97110; 97116; 97162; 97167; 97535; 99285; A9502; C8952; G0378; G8987; G8988; J1644; J1815; J1940; J2543; J2785; J3370; J7040; Q9967